=== PATIENT | female | born 1950 | race Caucasian/White ===

== ENCOUNTER 2020-11-18 08:59 | Outpatient (CLI) | payer MEDICARE, BC, SELFPAY ==
--- NOTE | ~2020-11-18 | MM_ITS ---
EXAMINATION: MM screening cari BI w edmund HISTORY: Screening mammogram, history of right breast cancer TECHNIQUE: Craniocaudal and mediolateral oblique 3-D tomosynthesis images were obtained and synthetic 2-D images were generated. CAD analysis was submitted and interpreted. COMPARISON: 10/22/2019, 10/12/2018, 09/14/2017 BREAST PARENCHYMAL COMPOSITION: There are scattered areas of fibroglandular density. FINDINGS: Stable lumpectomy changes are noted in the right breast. There is no evidence of suspicious mass, calcification, or architectural distortion to suggest malignancy in either breast. There has b een no suspicious interval change. IMPRESSION: 1. No mammographic evidence of malignancy. 2. Recommend routine screening mammography in one year. BI-RADS Category 2: Benign finding(s). Reviewed, dictated and finalized at location A. IVING ASSOCIATE
== END 2020-11-18 09:00 | disposition home or self-care (01) ==
LOC: ANHIMG 09:04
PROVIDERS: PCP Nurse Practitioner Adult Health; Visit Provider Nurse Practitioner Adult Health
DX: Z12.31 Encounter for screening mammogram for malignant neoplasm of breast (principal)
CPT/HCPCS: 77063; 77067

== ENCOUNTER 2021-12-30 07:48 | Outpatient (CLI) | payer MEDICARE, BC, SELFPAY ==
--- NOTE | ~2021-12-30 | MM_ITS ---
EXAMINATION: MM screening cari BI w edmund HISTORY: Screening mammogram, history of right breast cancer TECHNIQUE: Craniocaudal and mediolateral oblique 3-D tomosynthesis images were obtained and synthetic 2-D images were generated. CAD analysis was submitted and interpreted. COMPARISON: 11/18/2020, 10/22/2019, 10/12/2018 BREAST PARENCHYMAL COMPOSITION: There are scattered areas of fibroglandular density. FINDINGS: Again noted are stable lumpectomy changes in the right breast. There is no suspicious mass, calcification, or architectural distortion to suggest malignancy in either breast. There has been no suspicious interval change. IMPRESSION: 1. No mammographic evidence of malignancy. 2. Recommend routine screening mammography in one year. BI-RADS Category 2: Benign finding(s). Reviewed, dictated and finalized at location A.
--- NOTE | ~2021-12-30 | DEXA_ITS ---
Bone Density Report Name: ASHWIN STOLL Age: 71 Sex: Female Ethnicity: White Date of : 1950 Indication: osteopenia; height loss; prior fracture; cancer; hysterectomy; postmenopausal Referring Provider: ANAYELI, CAIN Study: Bone densitometry was performed. Exam Date: December 30, 2021 Accession number: [id number] Bone Density: Region BMD T-score Z-score Classification AP Spine (L1-L4) 0.866 -1.6 0.5 Osteopenia Femoral Neck (Left) 0.659 -1.7 0.1 Osteopenia Total Hip (Left) 0.769 -1.4 0.1 Osteopenia Total Hip Bilateral Avg 0.764 -1.5 0.1 Osteopenia Femoral Neck (Right) 0.654 -1.8 0.0 Osteopenia Total Hip (Right) 0.758 -1.5 0.0 Osteopenia World Health Organization criteria for BMD impression classify patients as: Normal (T-score at or above -1.0), Osteopenia (T-score between -1.0 and -2.5), or Osteoporosis (T-score at or below -2.5). 10-year Fracture Risk(1): Major Osteoporotic Fracture 16% Hip Fracture 2.5% Reported Risk Factors: [place] (), Neck BMD=0.654, BMI=31.1, previous fracture (1) FRAX(R) Version 3.08. Fracture probability calculated for an untreated patient. Fracture probability may be lower if the patient has received treatment. Previous Exams: Region Exam Age BMD T-score BMD Change BMD Change Date g/cm2 vs Baseline vs Previous AP Spine(L1-L4) 12/30/2021 71 0.866 -1.6 -0.061(-6.6%)# -0.006(-0.7%) 09/09/2016 65 0.872 -1.6 -0.055(-6.0%)# 0.017(2.0%)# 05/07/2014 63 0.855 -1.7 -0.072(-7.8%)# -0.038(-4.3%)# 02/19/2009 58 0.893 -1.4 -0.034(-3.7%)* -0.034(-3.7%)* 11/15/2005 55 0.927 -1.1 Total Hip(Left) 12/30/2021 71 0.769 -1.4 0.004(0.6%)# 0.040(5.5%)* 09/09/2016 65 0.729 -1.7 -0.036(-4.7%)# -0.007(-0.9%)# 05/07/2014 63 0.736 -1.7 -0.029(-3.8%)# -0.064(-8.0%)# 02/19/2009 58 0.800 -1.2 0.035(4.6%)* 0.035(4.6%)* 11/15/2005 55 0.765 -1.5 Total Hip(Right) 12/30/2021 71 0.758 -1.5 -0.021(-2.7%)# 0.004(0.5%) 09/09/2016 65 0.754 -1.5 -0.025(-3.2%)# -0.006(-0.7%)# 05/07/2014 63 0.759 -1.5 -0.019(-2.5%)# 0.024(3.3%)# 02/19/2009 58 0.735 -1.7 -0.044(-5.6%)* -0.044(-5.6%)* 11/15/2005 55 0.779 -1.3 *Denotes significance at 95% confidence level, LSC for AP Spine = 0.022 g/cm2, LSC for Total Hip = 0.027 g/cm2 Clinical Information Provided by Patient: Has had a low trauma fracture Has used the following medications: Vitamin D Has the following medical conditions: Cancer, Hysterectomy
== END 2021-12-30 07:49 | disposition home or self-care (01) ==
LOC: ANHIMG 07:49
PROVIDERS: PCP Nurse Practitioner Adult Health; Visit Provider Nurse Practitioner Adult Health
DX: Z12.31 Encounter for screening mammogram for malignant neoplasm of breast (principal); Z78.0 Asymptomatic menopausal state; M85.88 Other specified disorders of bone density and structure, other site; M85.852 Other specified disorders of bone density and structure, left thigh; M85.851 Other specified disorders of bone density and structure, right thigh
CPT/HCPCS: 77063; 77067; 77080

== ENCOUNTER 2022-08-31 08:00 | Outpatient (CLI) | payer MEDICARE, BC, SELFPAY ==
--- NOTE | 2022-08-31 | EST_ITS ---
Patient Info Name: Beatris Garcia Age: 71 years : 1950 Gender: Female Ht: 63 in Wt: 165 lbs BSA: 1.85 m2 Exam Date: 08/31/2022 9:16 AM Exam Location: [facility] Stress Patient Status: Outpatient Admit Date: 08/31/2022 Staff Ordering Physician: Celestino, Anastasiya JEWELL Attending Provider: Celestino, Anastasiya JEWELL Exercise Technologist: Catracho Tai RDCS, RT Exercise Physician: Alejandro Blanchard DO Exam Type: CA stress martita w NM Study Info A regadenoson stress test was performed. Summary 1. 1. Negative lexiscan stress test for ischemic ST changes by ECG criteria. 2. 2. Baseline hypertension. 3. 3. Nuclear scan to follow and will be reported separately. Please correlate with it. 4. 4. Patient informed of the above results. Protocol: Lexiscan Stress ECG Details Stage: REST Duration (min): 3 min : 13 sec HR (bpm): 57 SBP (mmHg): 181 DBP (mmHg): 80 Stage: REST Duration (min): 7 min : 51 sec HR (bpm): 61 SBP (mmHg): 181 DBP (mmHg): 80 Stage: STAGE 1 Duration (min): 1 min : 0 sec HR (bpm): 94 SBP (mmHg): 181 DBP (mmHg): 80 Stage: RECOVERY Duration (min): 1 min : 0 sec HR (bpm): 94 SBP (mmHg): 203 DBP (mmHg): 76 Stage: RECOVERY Duration (min): 2 min : 0 sec HR (bpm): 87 SBP (mmHg): 203 DBP (mmHg): 76 Stage: RECOVERY Duration (min): 3 min : 0 sec HR (bpm): 83 SBP (mmHg): 158 DBP (mmHg): 70 Stage: RECOVERY Duration (min): 3 min : 7 sec HR (bpm): 83 SBP (mmHg): 158 DBP (mmHg): 70 Rest HR: 61 bpm Peak HR: 94 bpm Rest Sys BP: 181 mmHg Peak Sys BP: 203 mmHg Max Pred HR: 150 bpm % Max Pred HR: 63 % Target HR: 128 bpm Max RPP: 19,082 bpm*mmHg Termination Reason: Completed protocol Cardiac Symptoms: Shortness of breath Total Time: 1 min : 0 sec Rest Rossi BP: 80 mmHg Peak Rossi BP: 76 mmHg Total Dose: 0.4 mg Resting ECG Sinus rhythm. Stress ECG No ST changes. Arrhythmias None. Report Signatures
--- NOTE | ~2022-08-31 | NM_ITS ---
EXAMINATION: NM martita stress w perfusion DATE: 08/31/2022 11:25 INDICATION: Other forms of dyspnea TECHNIQUE: Rest images were obtained following intravenous administration of 9.6 mCi Tc99m tetrofosmi n (Myoview). The patient was infused intravenously with Lexiscan (Regadenoson). Then, 29.4 mCi Tc99m tetrofosmin (Myoview) was administered intravenously, and stress images were obtained in supine posit ion. Repeat post stress images were obtained in the prone position.. Data was reconstructed into shor t axis and horizontal and vertical long axis SPECT images. Gated SPECT images were also obtained. COMPARISON: None. FINDINGS: Likely attenuation artifact along portions of the anterior and posterior mora on the supin e imaging which normalizes with prone imaging. No perfusion defects on prone imaging to suggest ische iglesia or infarction. There is normal left ventricular chamber size, wall motion and ejection fraction. Left ventricular ejection fraction measures >70%. IMPRESSION: 1. Normal myocardial perfusion at rest and during stress. 2. Left ventricular ejection fraction measuring >70%. Reviewed, dictated and finalized at location B. R BUILDER WINDER
== END 2022-08-31 08:01 | disposition home or self-care (01) ==
PROVIDERS: PCP Nurse Practitioner Adult Health; Visit Provider Nurse Practitioner Adult Health
DX: R06.09 Other forms of dyspnea (principal)
CPT/HCPCS: 78452; 93017; A9502; J2785

== ENCOUNTER 2023-03-01 14:13 | Outpatient (CLI) | payer MEDICARE, BC, SELFPAY ==
--- NOTE | ~2023-03-01 | MM_ITS ---
EXAMINATION: MM screening cari BI w edmund HISTORY: Screening mammogram, history of right breast cancer TECHNIQUE: Craniocaudal and mediolateral oblique 3-D tomosynthesis images were obtained and synthetic 2-D images were generated. CAD analysis was submitted and interpreted. COMPARISON: 12/30/2021, 11/18/2020, 10/22/2019 BREAST PARENCHYMAL COMPOSITION: There are scattered areas of fibroglandular density. FINDINGS: Stable lumpectomy changes are again noted in the right breast. No suspicious mass, calcific ation, or architectural distortion are identified in either breast to suggest malignancy. There has b een no suspicious interval change. IMPRESSION: 1. No mammographic evidence of malignancy. 2. Recommend routine screening mammography in one year. BI-RADS Category 2: Benign finding(s). Reviewed, dictated and finalized at location A.
== END 2023-03-01 14:14 | disposition home or self-care (01) ==
LOC: ANHIMG 14:17
PROVIDERS: PCP Nurse Practitioner Family; Visit Provider Nurse Practitioner Adult Health
DX: Z12.31 Encounter for screening mammogram for malignant neoplasm of breast (principal)
CPT/HCPCS: 77063; 77067

== ENCOUNTER 2024-01-10 08:20 | Outpatient (CLI) | payer MEDICARE, BC, SELFPAY ==
[2024-01-10 09:31] LABS: Basophils Percent Auto 0.7 % (0.2-1.2); Eosinophils Absolute Auto 0.2 K/mm3 (0-0.3); Eosinophils Percent Auto 3.8 % (0-4.4); Hematocrit 32.2 % (37.0-47.0); Hemoglobin 10.4 g/dL (12.0-15.0); Immature Granulocyte Absolute 0.05 K/mm3 (0.00-0.031); Immature Granulocyte Percent A 0.9 % (0-0.5); Lymphocytes Absolute Auto 1.59 K/mm3 (0.9-3.2); Lymphocytes Percent Auto 27.7 % (18.3-44.2); Mean Corpuscular HGB Conc 32.3 g/dl (32-36); Mean Corpuscular Hemoglobin 32.3 pg (26-34); Mean Platelet Volume 10.3 fl (7.4-10.4); Monocytes Absolute Auto 0.5 K/mm3 (0.1-0.6); Monocytes Percent Auto 8.4 % (2.6-8.5); Neutrophils Absolute Auto 3.4 K/mm3 (1.3-6.7); Neutrophils Percent Auto 58.5 % (45.5-73.1); Nucleated Red Blood Cells Perc 0.3 % (0.0-0.2); Platelet Count Result 297 k/mm3 (150-375); Red Blood Count 3.22 M/mm3 (4.2-5.4); Red Cell Distribution Width 15.3 % (11.5-14.5); White Blood Count 5.7 K/mm3 (4.5-10.0)
[2024-01-10 09:59] LABS: Alanine Aminotransferase 15 U/L (6-35); Albumin Level 4.3 g/dL (3.5-5.1); Alkaline Phosphatase 65 U/L (38-126); Anion Gap 5 mmol/L (4-12); Aspartate Amino Transferase 21 U/L (14-36); Bilirubin,Total 0.5 mg/dL (0.2-1.3); Blood Urea Nitrogen 16 mg/dL (7-17); Carbon Dioxide 27 mmol/L (22-30); Chloride 106 mmol/L (98-107); Cholesterol 165 mg/dL (0-200); Estimated Glomerular Filt Rate > 60; Glucose 124 mg/dL (65-110); HDL Direct 46 mg/dL; Potassium 4.6 mmol/L (3.4-5.0); Sodium 138 mmol/L (137-145); Triglycerides 122 mg/dL (<150)
[2024-01-10 10:10] LABS: LDL Cholesterol Direct 94 mg/dL
[2024-01-10 11:00] LABS: Folic Acid > 20.0 ng/mL (2.76->20)
== END 2024-01-10 08:21 | disposition home or self-care (01) ==
LOC: ANHLAB 08:23
PROVIDERS: PCP Nurse Practitioner Adult Health; Visit Provider Nurse Practitioner Adult Health
DX: E78.5 Hyperlipidemia, unspecified (principal); D64.9 Anemia, unspecified
CPT/HCPCS: 36415; 80053; 80061; 82607; 82746; 84443; 85025

== ENCOUNTER 2024-04-04 09:50 | Outpatient (CLI) | payer MEDICARE, BC, SELFPAY ==
--- NOTE | ~2024-04-04 | MM_ITS ---
CORRECTED REPORT corrected examination description [facility] 04/05/24 This report was recreated on 04/05/24. Original report was EXAMINATION: MM screening mammo BI w edmund HISTORY: Screening TECHNIQUE: Craniocaudal and mediolateral oblique 3-D tomosynthesis images were obtained and synthetic 2-D images were generated. CAD analysis was submitted and interpreted. COMPARISON: Comparison to multiple prior studies sequentially, with oldest reviewed study dated 09/14/2017. BREAST PARENCHYMAL COMPOSITION: Not dense: There are scattered areas of fibroglandular density. FINDINGS: There is no evidence of suspicious mass, calcification, or architectural distortion to suggest malignancy in either breast. There has been no suspicious interval change. IMPRESSION: 1. No mammographic evidence of malignancy. 2. Recommend routine screening mammography in one year. BI-RADS Category 1: Negative Reviewed, dictated and finalized at location B. MTDD
== END 2024-04-04 09:51 | disposition home or self-care (01) ==
LOC: ANHIMG 09:53
PROVIDERS: PCP Nurse Practitioner Adult Health; Visit Provider Nurse Practitioner Adult Health
DX: Z12.31 Encounter for screening mammogram for malignant neoplasm of breast (principal)
CPT/HCPCS: 77063; 77067

== ENCOUNTER 2024-06-18 08:03 | Outpatient (CLI) | payer MEDICARE, BC, SELFPAY ==
[2024-06-18 20:06] LABS: Basophils Percent Auto 0.5 % (0.2-1.2); Eosinophils Absolute Auto 0.1 K/mm3 (0-0.3); Eosinophils Percent Auto 1.8 % (0-4.4); Hematocrit 33.4 % (37.0-47.0); Hemoglobin 10.5 g/dL (12.0-15.0); Immature Granulocyte Absolute 0.02 K/mm3 (0.00-0.031); Immature Granulocyte Percent A 0.3 % (0-0.5); Lymphocytes Absolute Auto 1.41 K/mm3 (0.9-3.2); Lymphocytes Percent Auto 22.6 % (18.3-44.2); Mean Corpuscular HGB Conc 31.4 g/dl (32-36); Mean Corpuscular Hemoglobin 32.5 pg (26-34); Mean Corpuscular Volume 103.4 fl (80-100); Mean Platelet Volume 10.1 fl (7.4-10.4); Monocytes Absolute Auto 0.6 K/mm3 (0.1-0.6); Monocytes Percent Auto 8.8 % (2.6-8.5); Neutrophils Absolute Auto 4.1 K/mm3 (1.3-6.7); Platelet Count Result 311 k/mm3 (150-375); Red Blood Count 3.23 M/mm3 (4.2-5.4); White Blood Count 6.2 K/mm3 (4.5-10.0)
[2024-06-18 20:14] LABS: Alanine Aminotransferase 16 U/L (6-35); Albumin Level 4.3 g/dL (3.5-5.1); Alkaline Phosphatase 68 U/L (38-126); Anion Gap 10 mmol/L (4-12); Aspartate Amino Transferase 84 U/L (14-36); Bilirubin,Total 0.5 mg/dL (0.2-1.3); Blood Urea Nitrogen 13 mg/dL (7-17); Calcium 9.8 mg/dL (8.4-10.2); Carbon Dioxide 28 mmol/L (22-30); Chloride 100 mmol/L (98-107); Cholesterol 161 mg/dL (0-200); Estimated Glomerular Filt Rate > 60; Glucose 114 mg/dL (65-110); HDL Direct 41 mg/dL; Potassium 4.8 mmol/L (3.4-5.0); Sodium 138 mmol/L (137-145); Triglycerides 172 mg/dL (<150)
[2024-06-18 20:25] LABS: LDL Cholesterol Direct 78 mg/dL
[2024-06-18 20:41] LABS: Add Urine Microscopic? YES; Appearance Urine Clear (Clear); Bacteria Urine None Seen /hpf; Bilirubin Urine Negative (Negative); Blood Urine Negative (Negative); Color Urine Yellow (Yellow); Glucose Urine UA Negative (Negative); Ketones Urine Negative (Negative); Leukocyte Esterase Ur Trace LEU/UL (Negative); Nitrate Urine Negative (Negative); Non Pathogenic Casts 0-2; Protein Urine Negative (Negative); RBC Urine 0-2 /hpf (0-2); Specific Grav Ur 1.015 (1.001-1.035); Squamous Epithelial Cell Urine None Seen /hpf (Few); Urobilinogen Urine 0.2 mg/dL (<2.0); WBC Urine 0-5 /hpf (0-3); pH Urine 5.5 (5.0-9.0)
== END 2024-06-18 08:04 | disposition home or self-care (01) ==
PROVIDERS: PCP Nurse Practitioner Adult Health; Visit Provider Nurse Practitioner Adult Health
DX: I10 Essential (primary) hypertension (principal); R42 Dizziness and giddiness
CPT/HCPCS: 36415; 80053; 80061; 81001; 85025

== ENCOUNTER 2024-06-19 12:40 | Outpatient (CLI) | payer MEDICARE, BC, SELFPAY | END 2024-06-19 12:41 | disposition home or self-care (01) | LOC: ANHLAB 12:44 | PROVIDERS: PCP Nurse Practitioner Adult Health; Visit Provider Nurse Practitioner Adult Health | DX: R73.9 Hyperglycemia, unspecified (principal) | CPT/HCPCS: 36415; 83036 ==

== ENCOUNTER 2025-01-21 07:53 | Outpatient (CLI) | payer MEDICARE, BC, SELFPAY ==
--- OUTSIDE RECORDS SUMMARY | 2025-01-21 08:01 | XMS_ITS | Clinical Summary ---
Author Organization [facility] Address [address] [place] [address] Care Team Providers Care Manufacturer'S Service Representative Name Role Phone Anastasiya Tirado NP Primary Care Provider Allergies No known active allergies Medications No known medications Social History Tobacco Use Types Packs/Day Years Used Date Smoking Tobacco: Never Smokeless Tobacco: Never Tobacco Cessation:Counseling Given: Not Answered Comments Unknown Sex and Gender Information Value Date Recorded Sex Assigned at Not on file Legal Sex Female 7:49 PM CDT Gender Identity Not on file Sexual Orientation Not on file Last Filed Vital Signs Vital Sign Reading Time Taken Comments Blood Pressure 177/62 11/26/2022 3:15 PM PROCESS TREATER Pulse 76 11/26/2022 3:15 PM PROCESS TREATER Temperature 36.7 C (98 F) 11/26/2022 3:15 PM PROCESS TREATER Respiratory Rate 20 11/26/2022 3:15 PM PROCESS TREATER Oxygen Saturation 97% 11/26/2022 3:15 PM PROCESS TREATER Inhaled Oxygen Concentration - - Weight 63.5 kg (140 lb) 11/26/2022 1:11 PM PROCESS TREATER Height 162.6 cm (5' 4 ) 11/26/2022 1:11 PM PROCESS TREATER Body Mass Index 24.03 11/26/2022 1:11 PM PROCESS TREATER Plan of Treatment Health Maintenance Due Date Last Done Comments Colorectal Cancer Screening Colonoscopy (10 Years) 1950 Hepatitis C 1969 Mammogram Screening 1991 Annual Medicare Wellness Visit 2016 Dexa Scan (General) 2016 DTaP, Tdap and Td Vaccines (2 - Tdap) 03/30/2022 03/30/2012 COVID-19 Vaccine ( season) 2024 08/13/2022, 12/31/2020, 12/29/2020, Additional history exists RSV Immunization or 60+ Years (1 - 1-dose 75+ series) 2026 Pneumococcal Vaccine: 65+ Years Completed 02/18/2019, 02/21/2017, 08/19/2015 Zoster Vaccines Completed 06/25/2019, 05/2018, 03/30/2012 Meningococcal B Vaccine Aged Out No l onger eligible based on patient's age to complete this topic Meningococcal Vaccine Aged Out No holly nicho eligible based on patient's age to complete this topic RSV Immunizations Under 20 Months Aged Out No longer eligible based on patient's age to complete this topic Insurance MEDICARE [facility] Care Teams Manufacturer'S Service Representative Relationship Specialty Start Date End Date Anastasiya Tirado NP [address] [place] [id number] PCP - General NURSE PRACTITIONER 11/26/22
--- OUTSIDE RECORDS SUMMARY | 2025-01-21 08:01 | XMS_ITS | Clinical Summary ---
Author Organization [facility] Address [address] [place] [address] Care Team Providers Care Container Washer Name Role Phone None, Physician Primary Care Provider Unavailabl e Source Comments [facility],non-owned Affiliates and Associated Physician Practices is amultiple site organization consisting of ambulatory clinics and hospital sitesin [place], [place], [place] and [place]. This disclosure is being madepursuant to the Care Everywhere program and may not contain all information available regarding this patient. Last updated 18.[facility] [employer] Allergies Active Allergy Reactions Criticality Noted Date Comments Amoxicillin Other 09/14/2023 Medications * Be aware that medications may not be up to date on this document. Alwaysverify current medications with the patient. Medication Sig Dispensed Refills Start Date End Date Status esomeprazole (NexIUM) 40 MG capsule 07/19/2023 Active simvastatin (Zocor) 20 MG tablet 07/03/2023 Active montelukast (Singulair) 10 MG tablet Take 1 (one) tablet by mouth once daily 08/27/2023 Active vitamin D, ergocalciferol, (Drisdol) 1.25 MG (52022 UT) capsule Take 1 (one) capsule by mouth every 30 days Active metoprolol tartrate IR (Lopressor) 50 MG tablet 10/10/2023 Active meloxicam (Mobic) 15 MG tablet Take 1 tablet every day by oral route as needed. Active losartan (Cozaar) 25 MG tablet Take 1 (one) tablet by mouth once daily 05/31/2023 Active Active Problems No known active problems Social History Tobacco Use Types Packs/Day Years Used Date Smoking Tobacco: Never Smokeless Tobacco: Never Tobacco Cessation:Counseling Given: Not Answered Alcohol Use Standard Drinks/Week Comments Not Currently 0 (1 standard drink = 0.6 oz pur e alcohol) Sex and Gender Information Value Date Recorded Sex Assigned at Not on file Gender Identity Not on file Sexual Orientation Not on file Plan of Treatment Health Maintenance Due Date Last Done Comments BONE DENSITY TESTING 1950 COLOGUARD (AGES 45-75) - COLON CA SCREENING 1950 COLON MONITORING 1950 COLONOSCOPY - COLON CA SCREENING 1950 CT COLONOGRAPHY - COLON CA SCREENING 1950 Colorectal Cancer Screening 1950 FIT - COLON CA SCREENING 1950 FLEX SIG - COLON CA SCREENING 1950 MAMMOGRAM 1950 MEDICARE AWV 12 MONTHS 1950 HEPATITIS C SCREENING 10/28/1969 DTAP/TDAP/TD VACCINES (1 - Tdap) 1970 PNEUMOCOCCAL VACCINE 50+ (1 of 1 - PCV) 2001 ZOSTER VACCINE (1 of 2) 2001 COVID-19 VACCINE (3 - season) 2024 12/31/2020, 12/02/2020 INFLUENZA VACCINE (#1) 2024 2, 07/15/2020, 06/26/2019, Additional history exists DEPRESSION SCREENING 10/16/2024 Respiratory Syncytial Virus (RSV) Vaccine Pt: or over 60 yrs (1 - 1-dose 75+ series) 2026 HEPATITIS B VACCINE Aged Out No longe r eligible based on patient's age to complete this topic HIB VACCINE Aged Out No longer eligi ble based on patient's age to complete this topic HPV VACCINE Aged Out No longer eligi ble based on patient's age to complete this topic MENINGOCOCCAL (Group B) VACCINE SHARED DECISION-MAKING Aged Out No longer eligible based on patient's age to complete this topic MENINGOCOCCAL GROUPS A/C/Y/W VACCINE Aged Out No longer eligible based on patient's age to complete this topic Care Teams Container Washer Relationship Specialty Start Date End Date None, Physician [address] [place] [address] PCP - General 09/14/23
[2025-01-21 19:06] LABS: Basophils Percent Auto 0.5 % (0.2-1.2); Eosinophils Absolute Auto 0.1 K/mm3 (0-0.3); Eosinophils Percent Auto 1.8 % (0-4.4); Hematocrit 32.4 % (37.0-47.0); Hemoglobin 10.1 g/dL (12.0-15.0); Immature Granulocyte Absolute 0.04 K/mm3 (0.00-0.031); Immature Granulocyte Percent A 0.7 % (0-0.5); Lymphocytes Absolute Auto 1.49 K/mm3 (0.9-3.2); Lymphocytes Percent Auto 24.3 % (18.3-44.2); Mean Corpuscular HGB Conc 31.2 g/dl (32-36); Mean Corpuscular Hemoglobin 32.1 pg (26-34); Mean Corpuscular Volume 102.9 fl (80-100); Mean Platelet Volume 10.3 fl (7.4-10.4); Monocytes Absolute Auto 0.5 K/mm3 (0.1-0.6); Monocytes Percent Auto 7.8 % (2.6-8.5); Neutrophils Percent Auto 64.9 % (45.5-73.1); Platelet Count Result 297 k/mm3 (150-375); Red Blood Count 3.15 M/mm3 (4.2-5.4); Red Cell Distribution Width 16.6 % (11.5-14.5); White Blood Count 6.1 K/mm3 (4.5-10.0)
[2025-01-21 19:40] LABS: Alanine Aminotransferase 18 U/L (6-35); Albumin Level 4.4 g/dL (3.5-5.1); Alkaline Phosphatase 70 U/L (38-126); Anion Gap 7 mmol/L (4-12); Aspartate Amino Transferase 77 U/L (14-36); Bilirubin,Total 0.4 mg/dL (0.2-1.3); Blood Urea Nitrogen 14 mg/dL (7-17); Calcium 9.7 mg/dL (8.4-10.2); Carbon Dioxide 27 mmol/L (22-30); Chloride 104 mmol/L (98-107); Cholesterol 186 mg/dL (0-200); Estimated Glomerular Filt Rate > 60; Glucose 112 mg/dL (65-110); HDL Direct 56 mg/dL; Potassium 4.7 mmol/L (3.4-5.0); Sodium 138 mmol/L (137-145); Triglycerides 89 mg/dL (<150)
[2025-01-21 19:52] LABS: LDL Cholesterol Direct 108 mg/dL
[2025-01-21 20:47] LABS: Hemoglobin A1C 5.7 % (<5.7)
== END 2025-01-21 07:54 | disposition home or self-care (01) ==
LOC: ANHBWCLAB 07:56
PROVIDERS: PCP Nurse Practitioner Adult Health; Visit Provider Nurse Practitioner Adult Health
DX: E78.5 Hyperlipidemia, unspecified (principal); R73.9 Hyperglycemia, unspecified
CPT/HCPCS: 36415; 80053; 80061; 83036; 85025

== ENCOUNTER 2025-01-31 10:39 | Outpatient (CLI) | payer MEDICARE, BC, SELFPAY ==
--- OUTSIDE RECORDS SUMMARY | 2025-01-31 10:42 | XMS_ITS | Clinical Summary ---
Author Organization [facility] Address [address] [place] [address] Care Team Providers Care Development Eng Name Role Phone Anastasiya Tirado NP Primary Care Provider [phone] Allergies No known active allergies Medications No [...] Comments Blood Pressure 177/62 11/26/2022 3:15 PM INSTRUMENT CHECKER Pulse 76 11/26/2022 3:15 PM INSTRUMENT CHECKER Temperature 36.7 C (98 F) 11/26/2022 3:15 PM INSTRUMENT CHECKER Respiratory Rate 20 11/26/2022 3:15 PM INSTRUMENT CHECKER Oxygen Saturation 97% 11/26/2022 3:15 PM INSTRUMENT CHECKER Inhaled Oxygen Concentration - - Weight 63.5 kg (140 lb) 11/26/2022 1:11 PM INSTRUMENT CHECKER Height 162.6 cm (5' 4 ) 11/26/2022 1:11 PM INSTRUMENT CHECKER Body Mass Index 24.03 11/26/2022 1:11 PM INSTRUMENT CHECKER Plan of Treatment Health Maintenance Due Date [...] - 1-dose 75+ series) 2026 Pneumococcal Vaccine: 50+ Years Completed 02/18/2019, 02/21/2017, 08/19/2015 Zoster Vaccines [...] age to complete this topic [facility] Care Teams Development Eng Relationship Specialty Start Date End Date Anastasiya Tirado NP [address] [place] [id number] PCP - General NURSE PRACTITIONER 11/26/22
--- OUTSIDE RECORDS SUMMARY | 2025-01-31 10:43 | XMS_ITS | Data Portability ---
Author Organization [facility], Main Office Address [address] [place] [address] Assessment Encounter Date Assessment Date Assessment LastModified by Organization Details LastModified Time 02/28/2023 02/28/2023 Mammogram scheduled for 03/01/23. Colonoscopy- Hysterectomy. Not available 02/28/2023 08:46:54 Plan of Treatment Reminders Order Date Submit Date Provider Last Modified By Organization Details Last Modified Time Details Appointments None recorded. Lab BMP, serum or plasma 2022 023 [facility] (Lab), [address] [place], [address], 3 14:47:42 glycohemogl obin, total, blood 2022 023 [facility] (Lab), [address] [place], [address], 3 14:59:06 lipid panel, serum 2022 023 [facility] (Lab), [address] [place], [address], 3 14:47:39 vitamin B12 + folate, serum or blood [email or web address] (Lab), [address] [place], [address], 3 08:46:46 Referral gastroenter ologist referral - screening colonoscopy . Pt unsure last. (New patient to our office today) 2022 023 [email or web address] Jagdeep Venegas MD, [address], [place], [address], 18:10:38 Procedures None recorded. Surgeries None recorded. Imaging bone density - last in 2020. 2022 023 [facility], [address], [address], [place], [address], 09:05:00 Medication Orders valacyclovi r 1 gram tablet 2022 023 DANISH [facility], [facility], [place], [address], 3 08:53:27 esomeprazol e magnesium 40 mg capsule,del ayed release 2022 023 [email or web address] [facility], [facility], [place], [address], 3 07:55:22 EpiPen 2-Miquel 0.3 mg/0.3 mL injection, auto-inject or 2022 023 [email or web address] [facility], [place], [address], 3 07:46:56 Patient TargetsNo targets recorded. Patient Instructions Encounter Date Encounter Id Patient Instructions Last Modified By Organization Details Last Modified Time 02/28/2023 [id number] FU in 6 mo for prediabetes, b12 low, htn, gerd, allergies, cold sores, constipation, lipid Not available 02/28/2023 09:01:24 Reason for Referral [employer] Referral for Screening for malignant neoplasm of colon screening colonoscopy. Pt unsure last. (New patient to our office today) Referring Physician: Yael Gillette, Family Medicine, Encounter Date: 02/28/2023 Results Created Date Observation Date Name Description Value Unit Range Abnormal Flag Note LastModifiedBy Organization Detail LastModifiedTime 01/04/20 22 01/03/2022 FOLAT E, SERUM /PLAS MA folate 12.7 NG/mL 2.76- Not Available [facility] (Lab) [address] [place], [address], 01/03/2022 15:24:09 01/04/20 22 01/03/2022 VITAM IN B12 (ELAINA OLMAN ) vb12 >1000 pg/mL 239-93 1 high Not Available [facility] (Lab) [address] [place], [address], 01/03/2022 15:24:07 01/04/20 22 01/03/2022 BASIC METAB OLIC PANEL sodium 137 mmol/ L 137-14 5 Not Available [facility] (Lab) [address] [place], [address], 01/03/2022 14:40:52 01/04/20 22 01/03/2022 BASIC METAB OLIC PANEL potassium 4.5 mmol/ L 3.5-5. 1 Not Available [facility] (Lab) [address] [place], [address], 01/03/2022 14:40:52 01/04/20 22 01/03/2022 BASIC METAB OLIC PANEL chloride 103 mmol/ L 98-107 Not Available [facility] (Lab) [address] [place], [address], 01/03/2022 14:40:52 01/04/20 22 01/03/2022 BASIC METAB OLIC PANEL carbon dioxide 29 mmol/ L 22-30 Not Available [facility] (Lab) [address] [place], [address], 01/03/2022 14:40:52 01/04/20 22 01/03/2022 BASIC METAB OLIC PANEL agap 9.5 mmol/ L 14-22 low Not Available [facility] (Lab) [address] [place], [address], 01/03/2022 14:40:52 01/04/20 22 01/03/2022 BASIC METAB OLIC PANEL glucose 119 mg/dL 70-99 high Not Available [facility] (Lab) [address] [place], [address], 01/03/2022 14:40:52 01/04/20 22 01/03/2022 BASIC METAB OLIC PANEL BUN 16 mg/dL 8-19 Not Available [facility] (Lab) [address] [place], [address], 01/03/2022 14:40:52 01/04/20 22 01/03/2022 BASIC METAB OLIC PANEL creatinine 0.71 mg/dL 0.66-1 .25 Not Available [facility] (Lab) [address] [place], [address], 01/03/2022 14:40:52 01/04/20 22 01/03/2022 BASIC METAB OLIC PANEL GFR >60 Refer ence Range : [place] ge GFR Healt hy Adult : >60 mL/mi n/1.7 3 m2 Chron ic Kidne y Disea se: 15-60 mL/mi n/1.7 3 m2 Kidne y Failu re: <15/m L/min /1.73 m2 www.n iddk. nih.g ov The MDRD study equat ion has not been valid ated in child carlos <18 years of age; pregn ant women ; the elder ly >85 years of age; or in some racia l or ethni c subgr oups, such as Hispa nics. Outsi de the valid ated remi eters , estim ated GFR is less accur ate, requi ring clini quique judgm ent on a case- by-ca se basis . Clini quique inter preta tion for other races and ages must be made by the clini medardo. The MDRD study equat ion has not been valid ated for the evalu ation of serum creat inine relat ed to nutri moe l statu s or medic ation usage . For perso ns <18 years of age, a pedia tric GFR calcu lator is avail able on the [facility] websi te: https ://lang montero.o mirtha/pr marleneess ional s/kdo qi/gf r_cal culat or Not Available [facility] (Lab) [address] [place], [address], 01/03/2022 14:40:52 01/04/20 22 01/03/2022 BASIC METAB OLIC PANEL calcium 10.1 mg/dL 8.4-10 .2 Not Available [facility] (Lab) [address] [place], [address], 01/03/2022 14:40:52 01/04/20 22 01/03/2022 LIPID PANEL cholesterol 198 mg/dL 140-19 9 NIH CAROL NSUS RECOM MENDA TION FOR VIVIENNE STERO L: ADULT CHILD LOW RISK: <200 <170 BORDE RLINE : <200- 239 ----- HIGH RISK: >240 >200 Not Available [facility] (Lab) [address] [place], [address], 01/03/2022 14:40:44 01/04/20 22 01/03/2022 LIPID PANEL triglyceride s 145 mg/dL 0-150 NIH CAROL NSUS REPOR T RECOM MENDA TION FOR TRIGL YCERI SONNY: ADULT CHILD LOW RISK: <150 ----- BODER LINE: 150-1 99 ----- HIGH RISK: >200 ----- Not Available [facility] (Lab) [address] [place], [address], 01/03/2022 14:40:44 01/04/20 22 01/03/2022 LIPID PANEL HDL cholesterol 52 mg/dL 40- Not Available [facility] (Lab) [address] [place], [address], 01/03/2022 14:40:44 01/04/20 22 01/03/2022 LIPID PANEL LDL cholesterol, calculated 117 mg/dL 0-130 NIH CAROL NSUS REPOR T RECOM MENDA TIONS FOR LDL: ADULT CHILD LOW RISK <130 <110 (OPTI MAL LDL) <100 ----- GORDONDE RLINE : 130-1 59 ----- HIGH RISK: >160 >130 A TRIGL YCERI DE RESUL T >400 INVAL IDATE S THE CALCU LATIO N FOR LDL FRACT IONAT ION - THE LDL RESUL T WILL NOT BE REPOR AUDREY. Not Available [facility] (Lab) [address] [place], [address], 01/03/2022 14:40:44 01/04/20 22 01/03/2022 HEPAT IC/LI ALINA PANEL biliurubin,u ncong. (indirect) 0.60 mg/dL 0.00-1 .1 Not Available [facility] (Lab) [address] [place], [address], 01/03/2022 14:40:42 01/04/20 22 01/03/2022 HEPAT IC/LI ALINA PANEL alkaline phosphatase 65 U/L 38-126 Not Available [facility] (Lab) [address] [place], [address], 01/03/2022 14:40:42 01/04/20 22 01/03/2022 HEPAT IC/LI ALINA PANEL alanine aminotransfe rase 16 U/L 0-35 Not Available [facility] (Lab) [address] [place], [address], 01/03/2022 14:40:42 01/04/20 22 01/03/2022 HEPAT IC/LI ALINA PANEL aspartate aminotransfe rase 22 U/L 15-37 Not Available [facility] (Lab) [address] [place], [address], 01/03/2022 14:40:42 01/04/20 22 01/03/2022 HEPAT IC/LI ALINA PANEL bilirubin, total 0.40 mg/dL 0.20-1 .30 Not Available [facility] (Lab) [address] [place], [address], 01/03/2022 14:40:42 01/04/20 22 01/03/2022 HEPAT IC/LI ALINA PANEL bilirubin, conjugated (direct) 0.00 mg/dL 0.00-0 .30 Not Available [facility] (Lab) [address] [place], [address], 01/03/2022 14:40:42 01/04/20 22 01/03/2022 HEPAT IC/LI ALINA PANEL total protein 7.1 g/dL 6.3-8. 2 Not Available [facility] (Lab) [address] [place], [address], 01/03/2022 14:40:42 01/04/20 22 01/03/2022 HEPAT IC/LI ALINA PANEL albumin 4.6 g/dL 3.0-4. 4 high Not Available [facility] (Lab) [address] [place], [address], 01/03/2022 14:40:42 01/04/20 22 01/03/2022 HEPAT IC/LI ALINA PANEL globulin 2.5 g/dL 2.6-4. 2 low Not Available [facility] (Lab) [address] [place], [address], 01/03/2022 14:40:42 01/04/20 22 01/03/2022 HEPAT IC/LI ALINA PANEL A/G ratio 1.8 ratio 1.0-2. 0 Not Available [facility] (Lab) [address] [place], [address], 01/03/2022 14:40:42 01/04/20 22 01/03/2022 VITAM IN D 25-HY DROXY vd25oh 58.9 NG/mL 30-100 Vitam in D Statu s: Defic ient: <20 ng/mL Insuf ficie nt: 20-29 ng/mL Suffi cient : 30-10 0 ng/mL Not Available [facility] (Lab) [address] [place], [address], 01/03/2022 14:40:09 01/04/20 22 01/03/2022 HEMOG LOBIN A1C HA1C 6.1 % 4.0-6. 0 high Diabe joyce Scree dakota Crite lyudmila: <5.7% Consi stent with absen ce of diabe joyce 5.7-6 .4% Consi stent with incre ased risk for diabe joyce (pred iabet es) >OR=6 .5% Consi stent with diabe joyce REFER ENCE: Diabe joyce Care 39(Barros ppl.1 ):s13 -s22 Not Available [facility] (Lab) [address] [place], [address], 01/03/2022 13:16:37 08/09/20 22 08/10/2022 HEMOG LOBIN A1C HA1C 6.0 % 4.0-6. 0 Diabe joyce Scree dakota Crite lyudmila: <5.7% Consi stent with absen ce of diabe joyce 5.7-6 .4% Consi stent with incre ased risk for diabe joyce (pred iabet es) >OR=6 .5% Consi stent with diabe joyce REFER ENCE: Diabe joyce Care 39(Barros ppl.1 ):s13 -s22 Not Available [facility] (Lab) [address] [place], [address], 08/10/2022 15:12:23 08/09/2008/09/2022 FOLAT E, SERUM /PLAS MA folate 8.83 NG/mL 2.76-2 0.0 Not Available [facility] (Lab) [address] [place], [address], 08/09/2022 15:07:59 08/09/20 22 08/09/2022 VITAM IN B12 (ELAINA OLMAN ) vb12 >1000 pg/mL 239-93 1 high Not Available [facility] (Lab) [address] [place], [address], 08/09/2022 15:07:55 08/09/20 22 08/09/2022 VITAM IN D 25-HY DROXY vd25oh 51.1 NG/mL 30-100 Vitam in D Statu s: Defic ient: <20 ng/mL Insuf ficie nt: 20-29 ng/mL Suffi cient : 30-10 0 ng/mL Not Available [facility] (Lab) [address] [place], [address], 08/09/2022 14:21:59 08/09/20 22 08/09/2022 BASIC METAB OLIC PANEL sodium 137 mmol/ L 137-14 5 Not Available [facility] (Lab) [address] [place], [address], 08/09/2022 14:10:02 08/09/20 22 08/09/2022 BASIC METAB OLIC PANEL potassium 5.3 mmol/ L 3.5-5. 1 high Not Available [facility] (Lab) [address] [place], [address], 08/09/2022 14:10:02 08/09/20 22 08/09/2022 BASIC METAB OLIC PANEL chloride 106 mmol/ L 98-107 Not Available [facility] (Lab) [address] [place], [address], 08/09/2022 14:10:02 08/09/20 22 08/09/2022 BASIC METAB OLIC PANEL carbon dioxide 27 mmol/ L 22-30 Not Available [facility] (Lab) [address] [place], [address], 08/09/2022 14:10:02 08/09/20 22 08/09/2022 BASIC METAB OLIC PANEL anion gap 9.3 mmol/ L 14-22 low Not Available [facility] (Lab) [address] [place], [address], 08/09/2022 14:10:02 08/09/20 22 08/09/2022 BASIC METAB OLIC PANEL glucose 118 mg/dL 70-99 high Not Available [facility] (Lab) [address] [place], [address], 08/09/2022 14:10:02 08/09/20 22 08/09/2022 BASIC METAB OLIC PANEL BUN 15 mg/dL 8-19 Not Available [facility] (Lab) [address] [place], [address], 08/09/2022 14:10:02 08/09/20 22 08/09/2022 BASIC METAB OLIC PANEL creatinine 0.79 mg/dL 0.66-1 .25 Not Available [facility] (Lab) [address] [place], [address], 08/09/2022 14:10:02 08/09/20 22 08/09/2022 BASIC METAB OLIC PANEL GFR >60 Refer ence Range : [place] ge GFR Healt hy Adult : >60 mL/mi n/1.7 3 m2 Chron ic Kidne y Disea se: 15-60 mL/mi n/1.7 3 m2 Kidne y Failu re: <15/m L/min /1.73 m2 www.n iddk. nih.g ov The MDRD study equat ion has not been valid ated in child carlos <18 years of age; pregn ant women ; the elder ly >85 years of age; or in some racia l or ethni c subgr oups, such as Hispa nics. Outsi de the valid ated remi eters , estim ated GFR is less accur ate, requi ring clini quique judgm ent on a case- by-ca se basis . Clini quique inter preta tion for other races and ages must be made by the clini medardo. The MDRD study equat ion has not been valid ated for the evalu ation of serum creat inine relat ed to nutri moe l statu s or medic ation usage . For perso ns <18 years of age, a pedia tric GFR calcu lator is avail able on the [facility] websi te: https ://lang perdomo.renetta montero.o rg/pr ofess ional s/kdo qi/gf r_cal culat or Not Available [facility] (Lab) [address] [place], [address], 08/09/2022 14:10:02 08/09/20 22 08/09/2022 BASIC METAB OLIC PANEL calcium 9.9 mg/dL 8.4-10 .2 Not Available [facility] (Lab) [address] [place], [address], 08/09/2022 14:10:02 08/09/20 22 08/09/2022 LIPID PANEL cholesterol 196 mg/dL 140-19 9 NIH CAROL NSUS RECOM MENDA TION FOR VIVIENNE STERO L: ADULT CHILD LOW RISK: <200 <170 BORDE RLINE : <200- 239 ----- HIGH RISK: >240 >200 Not Available [facility] (Lab) [address] [place], [address], 08/09/2022 14:09:52 08/09/20 22 08/09/2022 LIPID PANEL triglyceride s 183 mg/dL 0-150 high NIH CAROL NSUS REPOR T RECOM MENDA TION FOR TRIGL YCERI SONNY: ADULT CHILD LOW RISK: <150 ----- BODER LINE: 150-1 99 ----- HIGH RISK: >200 ----- Not Available [facility] (Lab) [address] [place], [address], 08/09/2022 14:09:52 08/09/20 22 08/09/2022 LIPID PANEL HDL cholesterol 45 mg/dL 40- Not Available [facility] (Lab) [address] [place], [address], 08/09/2022 14:09:52 08/09/2008/09/2022 LIPID PANEL LDL cholesterol, calculated 114 mg/dL 0-130 NIH CAROL NSUS REPOR T RECOM MENDA TIONS FOR LDL: ADULT CHILD LOW RISK <130 <110 (OPTI MAL LDL) <100 ----- BORDE RLINE : 130-1 59 ----- HIGH RISK: >160 >130 A TRIGL YCERI DE RESUL T >400 INVAL IDATE S THE CALCU LATIO N FOR LDL FRACT IONAT ION - THE LDL RESUL T WILL NOT BE REPOR AUDREY. Not Available [facility] (Lab) [address] [place], [address], 08/09/2022 14:09:52 08/09/2008/09/2022 HEPAT IC/LI ALINA PANEL biliurubin,u ncong. (indirect) 0.40 mg/dL 0.00-1 .1 Not Available [facility] (Lab) [address] [place], [address], 08/09/2022 14:09:40 08/09/20 22 08/09/2022 HEPAT IC/LI ALINA PANEL alkaline phosphatase 78 U/L 38-126 Not Available [facility] (Lab) [address] [place], [address], 08/09/2022 14:09:40 08/09/20 22 08/09/2022 HEPAT IC/LI ALINA PANEL alanine aminotransfe rase 15 U/L 0-35 Not Available [facility] (Lab) [address] [place], [address], 08/09/2022 14:09:40 08/09/20 22 08/09/2022 HEPAT IC/LI ALINA PANEL aspartate aminotransfe rase 22 U/L 15-37 Not Available [facility] (Lab) [address] [place], [address], 08/09/2022 14:09:40 08/09/20 22 08/09/2022 HEPAT IC/LI ALINA PANEL bilirubin, total 0.40 mg/dL 0.20-1 .30 Not Available [facility] (Lab) [address] [place], [address], 08/09/2022 14:09:40 08/09/20 22 08/09/2022 HEPAT IC/LI ALINA PANEL bilirubin, conjugated (direct) 0.00 mg/dL 0.00-0 .30 Not Available [facility] (Lab) [address] [place], [address], 08/09/2022 14:09:40 08/09/20 22 08/09/2022 HEPAT IC/LI ALINA PANEL total protein 6.7 g/dL 6.3-8. 2 Not Available [facility] (Lab) [address] [place], [address], 08/09/2022 14:09:40 08/09/20 22 08/09/2022 HEPAT IC/LI ALINA PANEL albumin 4.4 g/dL 3.0-4. 4 Not Available [facility] (Lab) [address] [place], [address], 08/09/2022 14:09:40 08/09/20 22 08/09/2022 HEPAT IC/LI ALINA PANEL globulin 2.3 g/dL 2.6-4. 2 low Not Available [facility] (Lab) [address] [place], [address], 08/09/2022 14:09:40 08/09/20 22 08/09/2022 HEPAT IC/LI ALINA PANEL A/G ratio 1.9 ratio 1.0-2. 0 Not Available [facility] (Lab) [address] [place], [address], 08/09/2022 14:09:40 02/29/20 23 02/28/2023 LIPID PANEL cholesterol 192 mg/dL 140-19 9 NIH CAROL NSUS RECOM MENDA TION FOR VIVIENNE STERO L: ADULT CHILD LOW RISK: <200 <170 BORDE RLINE : <200- 239 ----- HIGH RISK: >240 >200 Not Available [facility] (Lab) [address] [place], [address], 02/28/2023 14:47:39 02/29/20 23 02/28/2023 LIPID PANEL triglyceride s 175 mg/dL 0-150 high NIH CAROL NSUS REPOR T RECOM MENDA TION FOR TRIGL YCERI SONNY: ADULT CHILD LOW RISK: <150 ----- BODER LINE: 150-1 99 ----- HIGH RISK: >200 ----- Not Available [facility] (Lab) [address] [place], [address], 02/28/2023 14:47:39 02/29/20 23 02/28/2023 LIPID PANEL HDL cholesterol 49 mg/dL 40- Not Available [facility] (Lab) [address] [place], [address], 02/28/2023 14:47:39 02/29/20 23 02/28/2023 LIPID PANEL LDL cholesterol, calculated 108 mg/dL 0-130 NIH CAROL NSUS REPOR T RECOM MENDA TIONS FOR LDL: ADULT CHILD LOW RISK <130 <110 (OPTI MAL LDL) <100 ----- BORDE RLINE : 130-1 59 ----- HIGH RISK: >160 >130 A TRIGL YCERI DE RESUL T >400 INVAL IDATE S THE CALCU LATIO N FOR LDL FRACT IONAT ION - THE LDL RESUL T WILL NOT BE REPOR AUDREY. Not Available [facility] (Lab) [address] [place], [address], 02/28/2023 14:47:39 02/29/2002/28/2023 BASIC METAB OLIC PANEL sodium 137 mmol/ L 137-14 5 Not Available [facility] (Lab) [address] [place], [address], 02/28/2023 14:47:42 02/29/20 23 02/28/2023 BASIC METAB OLIC PANEL potassium 4.9 mmol/ L 3.5-5. 1 Not Available [facility] (Lab) [address] [place], [address], 02/28/2023 14:47:42 02/29/20 23 02/28/2023 BASIC METAB OLIC PANEL chloride 103 mmol/ L 98-107 Not Available [facility] (Lab) [address] [place], [address], 02/28/2023 14:47:42 02/29/20 23 02/28/2023 BASIC METAB OLIC PANEL carbon dioxide 27 mmol/ L 22-30 Not Available [facility] (Lab) [address] [place], [address], 02/28/2023 14:47:42 02/29/20 23 02/28/2023 BASIC METAB OLIC PANEL anion gap 11.9 mmol/ L 14-22 low Not Available [facility] (Lab) [address] [place], [address], 02/28/2023 14:47:42 02/29/20 23 02/28/2023 BASIC METAB OLIC PANEL glucose 125 mg/dL 70-99 high Not Available [facility] (Lab) [address] [place], [address], 02/28/2023 14:47:42 02/29/20 23 02/28/2023 BASIC METAB OLIC PANEL BUN 12 mg/dL 8-19 Not Available [facility] (Lab) [address] [place], [address], 02/28/2023 14:47:42 02/29/20 23 02/28/2023 BASIC METAB OLIC PANEL creatinine 0.77 mg/dL 0.66-1 .25 Not Available [facility] (Lab) [address] [place], [address], 02/28/2023 14:47:42 02/29/2002/28/2023 BASIC METAB OLIC PANEL GFR >60 Refer ence Range : [place] ge GFR Healt hy Adult : >60 mL/mi n/1.7 3 m2 Chron ic Kidne y Disea se: 15-60 mL/mi n/1.7 3 m2 Kidne y Failu re: <15/m L/min /1.73 m2 www.n iddk. nih.g ov The MDRD study equat ion has not been valid ated in child carlos <18 years of age; pregn ant women ; the elder ly >85 years of age; or in some racia l or ethni c subgr oups, such as Hispa nics. Outsi de the valid ated remi eters , estim ated GFR is less accur ate, requi ring clini quique judgm ent on a case- by-ca se basis . Clini quique inter preta tion for other races and ages must be made by the clini medardo. The MDRD study equat ion has not been valid ated for the evalu ation of serum creat inine relat ed to nutri moe l statu s or medic ation usage . For perso ns <18 years of age, a pedia tric GFR calcu lator is avail able on the [facility] websi te: https ://lang montero.robb shannon/alivia allen s/harsho qi/gf r_cal culat or Not Available [facility] (Lab) [address] [place], [address], 02/28/2023 14:47:42 02/29/2002/28/2023 BASIC METAB OLIC PANEL calcium 9.9 mg/dL 8.4-10 .2 Not Available [facility] (Lab) [address] [place], [address], 02/28/2023 14:47:42 02/29/2002/28/2023 HEMOG LOBIN A1C HA1C 5.9 % 4.0-6. 0 Diabe joyce Scree dakota Crite lyudmila: <5.7% Consi stent with absen ce of diabe joyce 5.7-6 .4% Consi stent with incre ased risk for diabe joyce (pred iabet es) >OR=6 .5% Consi stent with diabe joyce REFER ENCE: Diabe joyce Care 2015, 39(Barros ppl.1 ):s13 -s22 Not Available [facility] (Lab) [address] [place], [address], 02/28/2023 14:59:06 02/29/20 23 02/28/2023 VITAM IN B12 (ELAINA OLMAN ) vb12 903 pg/mL 239-93 1 Not Available [facility] (Lab) [address] [place], [address], 02/28/2023 15:49:50 02/29/2002/28/2023 FOLAT E, SERUM /PLAS MA folate 11.7 NG/mL 2.76-2 0.0 Not Available [facility] (Lab) [address] [place], [address], 02/28/2023 15:49:53 12/31/19 22 12/30/2021 MAMMO , scree dakota, bilat eral No observ ation record ed. [id number], [address], 12/14/2022 02:55:12 08/31/20 22 08/31/2022 tom can cardi olite stres s test (PROC ) No observ ation record ed. [id number] [address], [address], 12/14/2022 02:55:12 08/31/20 22 08/31/2022 tom can cardi olite stres s test (PROC ) No observ ation record ed. [id number] [address], [address], 12/14/2022 02:55:12 08/31/20 22 08/31/2022 tom can cardi olite stres s test (PROC ) No observ ation record ed. [id number] [facility] [address], [place], [address], 12/14/2022 02:55:12 03/01/2003/01/2023 MAMMO , scree dakota, digit al, bilat eral No observ ation record ed. [email or web address] [facility] [address], [place], [address], 03/02/2023 09:11:43 03/01/2003/01/2023 MAMMO , scree dakota, bilat eral No observ ation record ed. [email or web address] [facility] [address] [facility] [address], [place], [address], 03/02/2023 12:33:11 Result Notes None recorded. Problems Name Problem SNOMED Code Status Onset Date Resolution Date Notes Provider Name and Address Organization Details Recorded Time Plantar fasciitis of right foot [id number] Active 2020 Not Available [facility] 3 02:44:44 Disorder of knee 939465884 Active Not Available [facility] 3 02:44:44 Hyperchol esterolem ia 49456574 Active Not Available [facility] 3 02:44:44 Constipat ion 46793293 Active Not Available [facility] 3 02:44:44 Tibialis posterior tendiniti s 170429213 Active 2020 Not Available [facility] 3 02:44:44 Plantar fasciitis 281318181 Active Not Available [facility] 3 02:44:44 Gastroeso phageal reflux disease 796329780 Active Not Available [facility] 3 02:44:44 Dyspnea 298888526 Completed Not Available [facility] 3 02:44:44 Osteopeni a 260194217 Active Not Available [facility] 3 02:44:45 Vitamin D deficienc y 49871934 Active Not Available [facility] 3 02:44:45 Hypertens amy disorder 39105179 Active Not Available [facility] 3 02:44:45 Disorder of vitamin B12 326820242 Active 2019 Not Available [facility] 3 02:44:45 Influenza caused by Influenza A virus 166609530 Completed 201602/21/2017 Not Available [facility] 3 02:44:45 Hyperlipi demia 70078603 Active Not Available [facility] 3 02:44:45 Essential hypertens ion 50880646 Active Not Available [facility] 3 02:44:45 Prediabet es 761391979 Active 2021 Not Available [facility] 3 02:44:45 Hyperglyc emia 72594698 Active Not Available [facility] 3 02:44:46 Allergic reaction to wasp sting 845122331 Active 2022 Yael Gillette NP [address], [address], [address] , [employer] 3 08:37:08 Vitamin B12 deficienc y (non anemic) 96570148 Active 2022 Yael Gillette NP [address], [place] [address], [place], [address] , [facility] 3 08:38:16 Herpes labialis 5511209 Active 2022 Yael Gillette NP [address], [place] [address], [place], [address] , [facility] 3 08:43:05 Seasonal allergic rhinitis 367040760 Active 2022 Yael Gillette NP [address], [place] [address], [place], [address] , [facility] 3 08:44:56 Problem Notes None recorded. Procedures Surgical History Date Name Laterality Status Provider Name and Address Organization Details Recorded Time 10/16/18 99 lumpectomy of right breast completed Yael Zavaleta RN [facility] [employer] [facility] 02/28/2023 08:21:25 01/01/19 99 lumpectomy of right breast completed Yael Zavaleta RN [facility] 02/28/2023 08:21:45 10/16/18 88 hysterectomy completed Yael Zavaleta RN [facility] 02/28/2023 08:21:56 Imaging Results Imaging Date Name Status LastModified by Organiz ation Details LastModified Time 12/30/2021 MAMMO, screening, bilateral completed [id number] [address], [address], 12/14/2022 02:55:12 08/31/2022 lexiscan cardiolite stress test (PROC) completed [id number].[id number] [address], [address], 12/14/2022 02:55:12 08/31/2022 lexiscan cardiolite stress test (PROC) completed [id number] [address], [address], 12/14/2022 02:55:12 08/31/2022 lexiscan cardiolite stress test (PROC) completed [id number] [address], [address], 12/14/2022 02:55:12 03/01/2023 MAMMO, screening, digital, bilateral completed [email or web address] [address], [address], 03/02/2023 09:11:43 03/01/2023 MAMMO, screening, bilateral completed [email or web address] [address], [address], 03/02/2023 12:33:11 Procedure Notes None recorded. Medical Equipment None Reported. Allergies Allergen ID Allergen Name Allergen Category Reaction Reaction Severity Criticality Documentation Date Start Date Code Code System Note Provider Name and Address Organization Details Recorded Time 4211 amoxicill in medicatio n Not available Not available Not available 12/14/2022 723 RxNorm bee/w asp sting s dizzy and swoll en Yael Gillette, [employer] [address], [place], [address] , [facility] [employer] 3 08:36:12 Medications Name Sig Start Date Stop Date Status Note LastModified by Organization Details LastModified Time doxycycline hyclate 100 mg capsule Take 1 capsule twice a day by oral route for 10 days. active Not Available Not Available No t Available valacyclovi r 1 gram tablet Take 2 tablets po bid x 1 day at onset of cold sore. 2022 active Not Available Not Available Not Avai lable hydrocodone 5 mg-acetamin ophen 325 mg tablet 01/01 completed Not Available Not Available Not Available meloxicam 15 mg tablet Take 1 tablet every day by oral route as needed. active Not Available Not Available No t Available clindamycin HCl 150 mg capsule 08/21 completed Not Available Not Available Not Available triamcinolo ne acetonide 40 mg/mL suspension for injection inject 1 ml 02/28 completed Not Available Not Available Not Available cephalexin 500 mg capsule TAKE 1 CAPSULE BY MOUTH TWICE DAILY FOR 5 DAYS 08/09 completed Not Available Not Available Not Available simvastatin 20 mg tablet 1 tab po nightly. 2022 active Not Available Not Available Not Avai lable cyanocobala min (vit B-12) 1,000 mcg/mL injection solution Inject 1ml weekly x 4 then monthly active Not Available Not Available No t Available oseltamivir 75 mg capsule TK 1 C PO BID FOR 5 DAYS 02/21 completed Not Available Not Available Not Available esomeprazol e magnesium 40 mg capsule,del ayed release 2022 active Not Available Not Available Not Avai lable losartan 25 mg tablet TAKE 1 TABLET DAILY 2022 active Not Available Not Available Not Avai lable metoprolol tartrate 50 mg tablet TAKE 1 TABLET BY MOUTH TWICE DAILY 2022 active Not Available Not Available Not Avai lable montelukast 10 mg tablet Take 1 tablet every day by oral route for 90 days. 2022 active Not Available Not Available Not Avai lable ergocalcife rol (vitamin D2) 1,250 mcg (50,000 unit) capsule TAKE 1 CAPSULE EVERY WEEK 02/21 completed OTC Not Available Not Available Not Available methylpredn isolone 4 mg tablets in a dose pack FOLLOW PACKAGE DIRECTION S 08/09 completed Not Available Not Available Not Available PreviDent 5000 Plus 1.1 % cream USE TO BRUSH FOR 2 MIN AND SPIT BID 02/28 completed Not Available Not Available Not Available metformin ER 500 mg tablet,exte nded release 24 hr Take 1 tablet every day by oral route in the morning for 90 days. active Not Available Not Available No t Available Asprin Ec Low Dose 81 mg tablet,kurt yed release Take 1 tablet every day by oral route. 2020 active Not Available Not Available Not Avai lable chlorhexidi ne gluconate 0.12 % mouthwash 02/28 completed Not Available Not Available Not Available Vitamin D2 Take 1 daily 2016 active Not Available Not Available Not Avai lable EpiPen 2-Miquel 0.3 mg/0.3 mL injection, auto-inject or 0.3 MG SC/IM X1, MAY REPEAT DOSE X1 AFTER 5-15MIN if allergic reaction persists. 2022 active Not Available Not Available Not Avai lable Fluad 65yr up(PF)45 mcg(15 mcgx3)/0.5 mL intramuscul ar syringe active Not Available Not Available N ot Available Shingrix (PF) 50 mcg/0.5 mL intramuscul ar suspension, kit ADM 0.5ML IM UTD 08/09 completed Not Available Not Available Not Available Fluad 65yr up(PF)45 mcg(15 mcgx3)/0.5 mL intramuscul ar syringe ADM 0.5ML IM UTD active Not Available Not Available No t Available Fluad Quad (6 5yr up)(PF) 60 mcg (15 mcg x 4)/0.5mL IM syringe ADM 0.5ML IM UTD 11/16 completed Not Available Not Available Not Available Vitals Date Recorded Body height Body mass index (BMI) Body weight Body temperature Heart rate Respiratory rate Oxygen saturation Oxygen saturation in Arterial blood by Pulse oximetry Pain severity - 0-10 verbal numeric rating [Score] - Reported Systolic blood pressure Diastolic blood pressure Provider Name and Address Organization Details Last Updated DateTime 3 160.02 cm 28.6 kg/m2 36435.4 2 g 96.6 [degF] 54 /min 16 /min 97 % 97 % 0 152 mm[Hg] 72 mm[Hg] Yael Zavaleta RN [place] [facility] [place] [employer] [facility] 3 08:19:17 Date Recorded Body mass index (BMI) Body height Oxygen saturation Oxygen saturation in Arterial blood by Pulse oximetry Heart rate Body temperature Body weight Systolic blood pressure Diastolic blood pressure Provider Name and Address Organization Details Last Updated DateTime 2 29.6 kg/m2 160.02 cm 99 % 99 % 64 /min 97 [degF] 25216.9 3 g 142 mm[Hg] 76 mm[Hg] Not Available [facility] 3 02:42:36 Date Recorded Body mass index (BMI) Body height Oxygen saturation Oxygen saturation in Arterial blood by Pulse oximetry Heart rate Body temperature Body weight Systolic blood pressure Diastolic blood pressure Provider Name and Address Organization Details Last Updated DateTime 2 29.2 kg/m2 160.02 cm 96 % 96 % 67 /min 97.3 [degF] 37445.7 4 g 136 mm[Hg] 80 mm[Hg] Not Available [facility] 3 02:42:36 Date Recorded Body height Provider Name an d Address Organization Details Last Updated DateTime 10/11/2021 160.02 cm Not Available [facility] 3 02:42:38 Social History Question Answer Notes LastModified by Organizat ion Details LastModified Time Tobacco Smoking Status Never Smoker Not Available [facility] 12/14/2022 02:34:58 Do You Have An Advance Directive? Yes MIGRATION.[id number] 9606 Information not available 12/14/2022 What Is Your Level Of Alcohol Consumption? None MIGRATION.741796 4104 Information not available 12/14/2022 Do You Wear A Helmet When Biking? Yes MIGRATION.008626 2086 Information not available 12/14/2022 Are You Blind Or Do You Have Difficulty Seeing? No MIGRATION.985983 8969 Information not available 12/14/2022 Is Blood Transfusion Acceptable In An Emergency? Yes Information not available 02/28/2023 What Is Your Level Of Caffeine Consumption? Moderate MIGRATION.674203 4181 Information not available 12/14/2022 What Is Your Code Status? Full Code MIGRATION.563214 5122 Information not available 12/14/2022 In The 14 Days Before Symptom Onset, Have You Had Close Contact With A Laboratory-confir med COVID-19 While That Case Was Ill? No MIGRATION.882626 6043 Information not available 12/14/2022 In The 14 Days Before Symptom Onset, Have You Had Close Contact With A Person Who Is Under Investigation For COVID-19 While That Person Was Ill? No MIGRATION.190805 3773 Information not available 12/14/2022 Are You Currently Employed? No Information not available 02/28/2023 Are You Deaf Or Do You Have Serious Difficulty Hearing? No MIGRATION.446769 5243 Information not available 12/14/2022 What Type Of Diet Are You Following? REGULAR MIGRATION.641000 6914 Information not available 12/14/2022 What Is The Highest Grade Or Level Of School You Have Completed Or The Highest Degree You Have Received? [id number] MIGRATION.856779 6640 Information not available 12/14/2022 Have There Been Any Changes To Your Family Or Social Situation? No MIGRATION.044366 7076 Information not available 12/14/2022 What Is The Fluoride Status Of Your Home? Unknown MIGRATION.146149 1135 Information not available 12/14/2022 Are There Any Guns Present In Your Home? No MIGRATION.426967 9608 Information not available 12/14/2022 Do You Use Insect Repellent Routinely? Yes MIGRATION.854669 5241 Information not available 12/14/2022 Where Do You Live? [facility] MIGRATION.882831 3962 Information not available 12/14/2022 Do You Have A Medical Power Of Hemp Fiber Taker Off? Yes MIGRATION.315476 2364 Information not available 12/14/2022 Do You Have Any Pets? No MIGRATION.425985 2755 Information not available 12/14/2022 What Is Your Relationship Status? MIGRATION.397392 5671 Information not available 12/14/2022 Do You Use Your Seat Belt Or Car Seat Routinely? Yes MIGRATION.364942 7254 Information not available 12/14/2022 Do You Have Smoke And Carbon Monoxide Detectors In Your Home? Yes MIGRATION.335213 8681 Information not available 12/14/2022 Are You Passively Exposed To Smoke? No MIGRATION.171161 3964 Information not available 12/14/2022 Are There Any Smokers In Your House? No MIGRATION.115974 8367 Information not available 12/14/2022 Do You Participate In Social Media? No MIGRATION.141308 3204 Information not available 12/14/2022 Do You Feel Stressed (tense, Restless, Nervous, Or Anxious, Or Unable To Sleep At Night)? [id number] MIGRATION.209668 3916 Information not available 12/14/2022 Do You Use Any Illicit Or Recreational Drugs? No MIGRATION.661489 7658 Information not available 12/14/2022 Do You Use Sunscreen Routinely? Yes MIGRATION.902913 7428 Information not available 12/14/2022 Has Tobacco Cessation Counseling Been Provided? No MIGRATION.432677 4127 Information not available 12/14/2022 Have You Recently Traveled Abroad? No MIGRATION.105107 7067 Information not available 12/14/2022 Are You Currently In School? No MIGRATION.222347 5660 Information not available 12/14/2022 Do You Have Any Dietary Restrictions? No MIGRATION.602292 6914 Information not available 12/14/2022 Do You Or Have You Ever Used Any Other Forms Of Tobacco Or Nicotine? No MIGRATION.207178 0233 Information not available 12/14/2022 Sex: Unknown Functional Status Question Answer Note LastModified by [employer] Details LastModified Time Do you have difficulty walking or climbing stairs? No MIGRATION.6067981 026 Information not available 12/14/2022 Do you have transportation difficulties? No MIGRATION.9965564 026 Information not available 12/14/2022 Are you able to walk? YESWOREST MIGRATION.2784257 026 Information not available 12/14/2022 Do you have difficulty doing errands alone? No MIGRATION.8358585 026 Information not available 12/14/2022 Are you able to care for yourself? Yes MIGRATION.3506991 026 Information not available 12/14/2022 Do you have difficulty dressing or bathing? No MIGRATION.9237804 026 Information not available 12/14/2022 What is your exercise level? None Information not available 02/28/2023 Mental Status Question Answer Note LastModified by [employer] Details LastModified Time Do you have difficulty concentrating, remembering or making decisions? No MIGRATION.[id number] 6 Information not available 12/14/2022 Family History Relationship Description Onset Age of this Age Resolved Age Notes LastModified by Organization Details LastModified Time Mother Family history of stroke Not available 2022 08:19:41 Father Malignant tumor of esophagus Not available 2022 08:20:04 Sister Malignant neoplasm of uterus Not available 2022 08:20:29 Medical History Condition Response BRONCHITIS Y CANCER: SPECIFY Y ALLERGIES/HAYFEVER Y OSTEOPOROSIS Y HYPERTENSION Y HIGH CHOLESTEROL / HYPERLIPIDEMIA Y Gynecological History Statement/Question Response If Post Menopausal, Age at Menopause Date of Last Mammogram 03/01/2023 Date of Last Colonoscopy Most Recent Bone Density Date of LMP Date of Last Pap Smear Most Recent Mammogram Obstetrics History GPAL:G 0 P 0 0 0 0 Immunizations Vaccine Type Date Status Note Provider Nam e and Address Organization Details Recorded Time Influenza, split virus, trivalent, preservative 6 completed Not Available [facility] 12/14/2022 02:54:14 Influenza, split virus, quadrivalent, preservative 2 completed Not Available [facility] 12/14/2022 02:54:14 COVID-19, mRNA, LNP-S, PF, 100 mcg/0.5mL dose or 50 mcg/0.25mL dose 1 completed Not Available [facility] 12/14/2022 02:54:14 COVID-19, mRNA, LNP-S, PF, 100 mcg/0.5mL dose or 50 mcg/0.25mL dose 1 completed Not Available [facility] 12/14/2022 02:54:15 Influenza, split virus, quadrivalent, preservative 0 completed Not Available [facility] 12/14/2022 02:54:15 Influenza, split virus, quadrivalent, preservative 9 completed Not Available [facility] 12/14/2022 02:54:15 Influenza, split virus, quadrivalent, preservative 8 completed Not Available [facility] 12/14/2022 02:54:15 Influenza, split virus, quadrivalent, preservative 7 completed Not Available [facility] 12/14/2022 02:54:15 pneumococcal polysaccharide PPV23 5 completed Not Available [facility] 12/14/2022 02:54:15 Influenza, split virus, trivalent, preservative 4 completed Not Available [facility] 12/14/2022 02:54:16 DTaP 2 completed Not Available [facility] 12/14/2022 02:54:16 zoster live 2 completed Not Available [facility] 12/14/2022 02:54:16 Influenza, high-dose, quadrivalent, PF 1 completed Not Available [facility] 12/14/2022 02:54:16 MMR 9 completed Not Available [facility] 12/14/2022 02:54:16 pneumococcal polysaccharide PPV23 9 completed Not Available [facility] 12/14/2022 02:54:16 Pneumococcal conjugate PCV 13 7 completed Not Available [facility] 12/14/2022 02:54:17 Influenza, split virus, quadrivalent, preservative 5 completed Not Available [facility] 12/14/2022 02:54:17 Past Encounters Encounter ID Performer Location Encounter Start Date Encounter Closed Date Diagnosis/Indication Diagnosis SNOMED-CT Code Diagnosis ICD10 Code Diagnosis Note [id number] [facility] Podiatry Irene Mcgill [address] [facility] [address] [place] [address] 01/11/2021 00:00:00 01/12/2021 10:10:40 [id number] [facility] [place] [address] 01/27/2021 00:00:00 01/27/2021 09:04:03 [id number] [facility] [place] [address] 02/03/2021 00:00:00 03/03/2021 16:39:32 [id number] [facility] [place] [address] 02/10/2021 00:00:00 02/10/2021 09:37:05 [id number] [facility] [place] [address] [place] [address] 02/18/2021 00:00:00 02/18/2021 12:50:54 [id number] [facility] [place] [address] [place] [address] 03/24/2021 00:00:00 03/24/2021 09:33:12 [id number] [facility] [place] [address] [place] [address] 04/22/2021 00:00:00 04/22/2021 10:11:30 [id number] [facility] [place] [address] [place] [address] 04/26/2021 00:00:00 04/26/2021 16:23:23 [id number] [facility] [place] [address] [place] [address] 07/05/2021 00:00:00 07/05/2021 09:03:11 [id number] [facility] [place] [address] [place] [address] 07/07/2021 00:00:00 07/08/2021 08:10:03 [id number] [facility] [place] [address] [place] [address] 08/16/2021 00:00:00 08/16/2021 09:51:06 [id number] [facility] [place] [address] [place] [address] 09/13/2021 00:00:00 09/13/2021 11:08:58 [id number] [facility] [place] [address] [place] [address] 10/11/2021 00:00:00 10/11/2021 09:43:22 [id number] [place] [address] [place] [address] 01/03/2022 00:00:00 01/03/2022 09:15:48 [id number] [place] [address] [place] [address] 08/09/2022 00:00:00 08/09/2022 09:04:40 [id number] Yael Gillette NP [address] [address] 02/28/2023 08:02:02 02/28/2023 09:05:14 Allergic reaction to wasp sting 201700875 T63.461A EpiPen Vitamin B1 2 deficiency (non anemic) 80552197 E53.8 B12 1,000 mcg monthly. Hasn't had in a while. Essential hypertension 83056486 I10 ASA 81 mg po daily.Losa rtan 25 mg po daily.Meto prolol Tartrate 50 mg po bid. Gastroesop hageal reflux disease 600668752 K21.9 Nexium 40 mg po daily. Needs to have PA.Has tried other meds before, but was several many years ago. Hyperlipidemia 07442867 E78.5 Simvastati n 20 mg po nightly. Osteopenia 493374031 M85 .80 Dexa 1. Ordered 02/28/23. Vitamin D deficiency 347 00519 E55.9 vit d po daily. Constipation 37686530 K5 9.00 Diet mods. Plantar fasciitis 371514 003 M72.2 Seeing Chiro. 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 Prediabetes 689597488 R7 3.03 Metformin ER 500 mg po daily. Seasonal a llergic rhinitis 754716133 J30.2 Montelukas t 10 mg po daily. Postmenopausal state 764 80657 Z78.0 Last in 2020. Screening for malignant neoplasm of colon 649362859 Z12.11 Unsure last time with Dr. Williamson. GI referral ordered. Health Concerns Section Related Observation LastModified by Organization Detai ls LastModified Time None Recorded Concern Status LastModified by Organization Details LastModified Time None Recorded Advance Directives Directive Y: Payers Encounter Date Sequence Insurance Name Policy Number Policy Joseph Covered Member ID Joseph Member ID Guarantor Name 02/28/2023 1 [place] Beatris Garcia [id number] Beatris Garcia 02/28/2023 2 [place] PROGRAM (PPO) 111 Beatris Garcia [id number] Beatris Garcia Notes Date Note Type Note Provider Name and Address Organization Details Recorded Time 02/28/2023 text/html Here for new patient appt.Transfer from [facility] office. Has been doing well and feeling well. Wants labs to see if b12 inj due.Lipid- working on it. Just trigs, but that is pasta and sweets.Prediabet es- low carb, low sugar diet.Osteopenia- Vit d daily and DEXA due.Mammogram scheduled for tomorrow. Yael Gillette NP [address] [facility] [address], [place], [address], [place] [facility] [employer] 02/28/2023 09:02:32 OBGyn Episode No OBEpisode recorded.
--- OUTSIDE RECORDS SUMMARY | 2025-01-31 10:43 | XMS_ITS | Clinical Summary ---
Author Organization [facility] Address [address] [place] [address] Care Team Providers Care Palliative Care Physician Name Role Phone None, Physician Primary Care Provider Unavailabl e Source Comments [facility],non-owned Affiliates and Associated Physician Practices is amultiple site organization consisting of ambulatory clinics and hospital sitesin [place], [place], [place] and [place]. This disclosure is being madepursuant to the Care Everywhere program and may not contain all information available regarding this patient. Last updated 18.[facility] [place] Allergies Active Allergy Reactions Criticality Noted Date Comments Amoxicillin Other 09/14/2023 Medications * Be aware that medications may not be up to date on this document. Alwaysverify current medications with the patient. esomeprazole (NexIUM) 40 MG capsule 07/19/2023 Active simvastatin (Zocor) 20 MG tablet 07/03/2023 Active montelukast (Singulair) 10 MG tablet Take 1 (one) tablet by mouth once daily 08/27/2023 Active vitamin D, ergocalciferol, (Drisdol) 1.25 MG (79246 UT) capsule Take 1 (one) capsule by [...] drink = 0.6 oz pur e alcohol) Comments Unknown Sex and Gender Information Value Date Recorded Sex Assigned at Not on file Legal Sex Female 10:53 AM ETL LEAD Gender Identity Not on file Sexual Orientation [...] VACCINE (3 - season) 2024 12/31/2020, 12/02/2020 DEPRESSION SCREENING 10/16/2024 INFLUENZA VACCINE (Season Ended) 2025 08/04/2022, 07/15/2020, 06/26/2019, Additional history exists Respiratory Syncytial Virus (RSV) Vaccine Pt: or [...] age to complete this topic Insurance MEDICARE MEDICARE [facility] Care Teams Palliative Care Physician Relationship Specialty Start Date End Date None, Physician [address] [place] [address] PCP - General 09/14/23
[2025-01-31 12:23] LABS: IFOB Positive Control Positive; Immunochemical Fecal Occult Bl Positive (N)
== END 2025-01-31 10:40 | disposition home or self-care (01) ==
PROVIDERS: PCP Nurse Practitioner Adult Health; Visit Provider Nurse Practitioner Adult Health
DX: D64.9 Anemia, unspecified (principal)
CPT/HCPCS: 82274

== ENCOUNTER 2025-05-02 00:44 | Day surgery (SDC) | payer MEDICARE, BC, SELFPAY ==
[2025-04-22 12:10] VITALS: BMI 24.8
--- OUTSIDE RECORDS SUMMARY | 2025-05-02 00:47 | XMS_ITS | Data Portability ---
Author Organization [facility] [employer], Main Office Address [address] [place] [address] Assessment Encounter Date Assessment Date Assessment LastModified by Organization Details LastModified Time 02/28/2023 02/28/2023 Mammogram scheduled for 03/01/23. Colonoscopy- Hysterectomy. Not available 02/28/2023 08:46:54 Plan of Treatment Reminders Order Date Submit Date Provider Last Modified By Organization Details Last Modified Time Details Appointments None recorded. Lab BMP, serum or plasma 2022 023 [facility] (Lab), [address] [place], [address], 3 14:47:42 glycohemogl obin, total, blood 2022 023 [facility] (Lab), [address] [place], [address], 3 14:59:06 lipid panel, serum 2022 023 [facility] (Lab), [address] [place], [address], 3 14:47:39 vitamin B12 + folate, serum or blood [address] [facility] [address] ([facility] [address] [place], [address], 3 08:46:46 Referral gastroenter ologist referral - screening colonoscopy . Pt unsure last. (New patient to our office today) 2022 023 [email or web address] Jagdeep Venegas MD, [address], [address], [place], [address], 18:10:38 Procedures None recorded. Surgeries None recorded. Imaging bone density - last in 2020. 2022 023 [facility], [address], [address], [place], [address], 09:05:00 Medication Orders valacyclovi r 1 gram tablet [address] [facility], [facility], [place], [address], 08:53:27 esomeprazol e magnesium 40 mg capsule,del ayed release [email or web address] [facility], [facility], [place], [address], 3 07:55:22 EpiPen 2-Miquel 0.3 mg/0.3 mL injection, auto-inject or [email or web address] [facility], [place], [address], 3 07:46:56 Patient TargetsNo targets recorded. Patient Instructions Encounter Date Encounter Id Patient Instructions Last Modified By Organization Details Last Modified Time 02/28/2023 [id number] FU in 6 mo for prediabetes, b12 low, htn, gerd, allergies, cold sores, constipation, lipid Not available 02/28/2023 09:01:24 Reason for Referral [employer] Referral for Screening for malignant neoplasm of colon screening colonoscopy. Pt unsure last. (New patient to our office today) Referring Physician: Yael Gillette, Family Medicine, Encounter Date: 02/28/2023 Results Created Date Observation Date Name Description Value Unit Range Abnormal Flag Note LastModifiedBy Organization Detail LastModifiedTime 01/04/20 22 01/03/2022 FOLAT E, SERUM /PLAS MA folate 12.7 NG/mL 2.76- Not Available [facility] (Lab) [address] [place], [address], 01/03/2022 15:24:09 01/04/20 22 01/03/2022 VITAM IN B12 (ELAINA OLMAN ) vb12 >1000 pg/mL 239-93 1 high Not Available [facility] (Lab) [address] [place], [address], 01/03/2022 15:24:07 01/04/20 22 01/03/2022 BASIC METAB OLIC PANEL sodium 137 mmol/ L 137-14 5 Not Available [facility] (Lab) [address] [place], [address], 01/03/2022 14:40:52 01/04/20 22 01/03/2022 BASIC METAB OLIC PANEL potassium 4.5 mmol/ L 3.5-5. 1 Not Available [facility] (Lab) [address] [place], [address], 01/03/2022 14:40:52 01/04/20 22 01/03/2022 BASIC METAB OLIC PANEL chloride 103 mmol/ L 98-107 Not Available [facility] (Lab) [address] [place], [address], 01/03/2022 14:40:52 01/04/20 22 01/03/2022 BASIC METAB OLIC PANEL carbon dioxide 29 mmol/ L 22-30 Not Available [facility] (Lab) [address] [place], [address], 01/03/2022 14:40:52 01/04/20 22 01/03/2022 BASIC METAB OLIC PANEL agap 9.5 mmol/ L 14-22 low Not Available [facility] (Lab) [address] [place], [address], 01/03/2022 14:40:52 01/04/20 22 01/03/2022 BASIC METAB OLIC PANEL glucose 119 mg/dL 70-99 high Not Available [facility] (Lab) [address] [place], [address], 01/03/2022 14:40:52 01/04/20 22 01/03/2022 BASIC METAB OLIC PANEL BUN 16 mg/dL 8-19 Not Available [facility] (Lab) [address] [place], [address], 01/03/2022 14:40:52 01/04/20 22 01/03/2022 BASIC METAB OLIC PANEL creatinine 0.71 mg/dL 0.66-1 .25 Not Available [facility] (Lab) [address] [place], [address], 01/03/2022 14:40:52 01/04/20 22 01/03/2022 BASIC METAB OLIC PANEL GFR >60 Refer ence Range : [place] ge GFR Healt hy Adult : >60 [...] calcu lator is avail able on the [facility] websi te: https ://lang montero.o mirtha/pr ofess ional s/kdo qi/gf r_cal culat or Not Available [facility] (Lab) [address] [place], [address], 01/03/2022 14:40:52 01/04/20 22 01/03/2022 BASIC METAB OLIC PANEL calcium 10.1 mg/dL 8.4-10 .2 Not Available [facility] (Lab) [address] [place], [address], 01/03/2022 14:40:52 01/04/20 22 01/03/2022 LIPID PANEL cholesterol 198 mg/dL 140-19 9 NIH CAROL NSUS RECOM MENDA TION FOR VIVIENNE STERO L: ADULT CHILD LOW RISK: <200 <170 BORDE RLINE : <200- 239 ----- HIGH RISK: >240 >200 Not Available [facility] (Lab) [address] [place], [address], 01/03/2022 14:40:44 01/04/20 22 01/03/2022 LIPID PANEL triglyceride s 145 mg/dL 0-150 NIH CAROL NSUS REPOR T RECOM MENDA TION FOR TRIGL YCERI SONNY: ADULT CHILD LOW RISK: <150 ----- BODER LINE: 150-1 99 ----- HIGH RISK: >200 ----- Not Available [facility] (Lab) [address] [place], [address], 01/03/2022 14:40:44 01/04/20 22 01/03/2022 LIPID PANEL HDL cholesterol 52 mg/dL 40- Not Available [facility] (Lab) [address] [place], [address], 01/03/2022 14:40:44 01/04/20 22 01/03/2022 LIPID PANEL [...] WILL NOT BE REPOR AUDREY. Not Available [facility] (Lab) [address] [place], [address], 01/03/2022 14:40:44 01/04/20 22 01/03/2022 HEPAT IC/LI ALINA PANEL biliurubin,u ncong. (indirect) 0.60 mg/dL 0.00-1 .1 Not Available [facility] (Lab) [address] [place], [address], 01/03/2022 14:40:42 01/04/20 22 01/03/2022 HEPAT IC/LI ALINA PANEL alkaline phosphatase 65 U/L 38-126 Not Available [facility] (Lab) [address] [place], [address], 01/03/2022 14:40:42 01/04/20 22 01/03/2022 HEPAT IC/LI ALINA PANEL alanine aminotransfe rase 16 U/L 0-35 Not Available [facility] (Lab) [address] [place], [address], 01/03/2022 14:40:42 01/04/20 22 01/03/2022 HEPAT IC/LI ALINA PANEL aspartate aminotransfe rase 22 U/L 15-37 Not Available [facility] (Lab) [address] [place], [address], 01/03/2022 14:40:42 01/04/20 22 01/03/2022 HEPAT IC/LI ALINA PANEL bilirubin, total 0.40 mg/dL 0.20-1 .30 Not Available [facility] (Lab) [address] [place], [address], 01/03/2022 14:40:42 01/04/20 22 01/03/2022 HEPAT IC/LI ALINA PANEL bilirubin, conjugated (direct) 0.00 mg/dL 0.00-0 .30 Not Available [facility] (Lab) [address] [place], [address], 01/03/2022 14:40:42 01/04/20 22 01/03/2022 HEPAT IC/LI ALINA PANEL total protein 7.1 g/dL 6.3-8. 2 Not Available [facility] (Lab) [address] [place], [address], 01/03/2022 14:40:42 01/04/20 22 01/03/2022 HEPAT IC/LI ALINA PANEL albumin 4.6 g/dL 3.0-4. 4 high Not Available [facility] (Lab) [address] [place], [address], 01/03/2022 14:40:42 01/04/20 22 01/03/2022 HEPAT IC/LI ALINA PANEL globulin 2.5 g/dL 2.6-4. 2 low Not Available [facility] (Lab) [address] [place], [address], 01/03/2022 14:40:42 01/04/20 22 01/03/2022 HEPAT IC/LI ALINA PANEL A/G ratio 1.8 ratio 1.0-2. 0 Not Available [facility] (Lab) [address] [place], [address], 01/03/2022 14:40:42 01/04/20 22 01/03/2022 VITAM IN D 25-HY DROXY vd25oh 58.9 NG/mL 30-100 Vitam in D Statu s: Defic ient: <20 ng/mL Insuf ficie nt: 20-29 ng/mL Suffi cient : 30-10 0 ng/mL Not Available [facility] (Lab) [address] [place], [address], 01/03/2022 14:40:09 01/04/20 22 01/03/2022 HEMOG LOBIN A1C HA1C 6.1 % 4.0-6. 0 high Diabe joyce Scree dakota Crite lyudmila: <5.7% Consi stent with absen ce of diabe joyce 5.7-6 .4% Consi stent with incre ased risk for diabe joyce (pred iabet es) >OR=6 .5% Consi stent with diabe joyce REFER ENCE: Diabe joyce Care (Barros ppl.1 ):s13 -s22 Not Available [facility] (Lab) [address] [place], [address], 01/03/2022 13:16:37 08/09/20 22 08/10/2022 HEMOG LOBIN A1C HA1C 6.0 % 4.0-6. 0 Diabe joyce Scree dakota Crite lyudmila: <5.7% Consi stent with absen ce of diabe joyce 5.7-6 .4% Consi stent with incre ased risk for diabe joyce (pred iabet es) >OR=6 .5% Consi stent with diabe joyce REFER ENCE: Diabe joyce Care (Barros ppl.1 ):s13 -s22 Not Available [facility] (Lab) [address] [place], [address], 08/10/2022 15:12:23 08/09/2008/09/2022 FOLAT E, SERUM /PLAS MA folate 8.83 NG/mL 2.76-2 0.0 Not Available [facility] (Lab) [address] [place], [address], 08/09/2022 15:07:59 08/09/20 22 08/09/2022 VITAM IN B12 (ELAINA OLMAN ) vb12 >1000 pg/mL 239-93 1 high Not Available [facility] (Lab) [address] [place], [address], 08/09/2022 15:07:55 08/09/20 22 08/09/2022 VITAM IN D 25-HY DROXY vd25oh 51.1 NG/mL 30-100 Vitam in D Statu s: Defic ient: <20 ng/mL Insuf ficie nt: 20-29 ng/mL Suffi cient : 30-10 0 ng/mL Not Available [facility] (Lab) [address] [place], [address], 08/09/2022 14:21:59 08/09/20 22 08/09/2022 BASIC METAB OLIC PANEL sodium 137 mmol/ L 137-14 5 Not Available [facility] (Lab) [address] [place], [address], 08/09/2022 14:10:02 08/09/20 22 08/09/2022 BASIC METAB OLIC PANEL potassium 5.3 mmol/ L 3.5-5. 1 high Not Available [facility] (Lab) [address] [place], [address], 08/09/2022 14:10:02 08/09/20 22 08/09/2022 BASIC METAB OLIC PANEL chloride 106 mmol/ L 98-107 Not Available [facility] (Lab) [address] [place], [address], 08/09/2022 14:10:02 08/09/20 22 08/09/2022 BASIC METAB OLIC PANEL carbon dioxide 27 mmol/ L 22-30 Not Available [facility] (Lab) [address] [place], [address], 08/09/2022 14:10:02 08/09/20 22 08/09/2022 BASIC METAB OLIC PANEL anion gap 9.3 mmol/ L 14-22 low Not Available [facility] (Lab) [address] [place], [address], 08/09/2022 14:10:02 08/09/20 22 08/09/2022 BASIC METAB OLIC PANEL glucose 118 mg/dL 70-99 high Not Available [facility] (Lab) [address] [place], [address], 08/09/2022 14:10:02 08/09/20 22 08/09/2022 BASIC METAB OLIC PANEL BUN 15 mg/dL 8-19 Not Available [facility] (Lab) [address] [place], [address], 08/09/2022 14:10:02 08/09/20 22 08/09/2022 BASIC METAB OLIC PANEL creatinine 0.79 mg/dL 0.66-1 .25 Not Available [facility] (Lab) [address] [place], [address], 08/09/2022 14:10:02 08/09/20 22 08/09/2022 BASIC METAB OLIC PANEL GFR >60 Refer ence Range : [place] ge GFR Healt hy Adult : >60 [...] of age, a pedia tric GFR calcu latarnold is avail able on the [facility] websi te: https :[email or web address] perdomo.renetta [email or web address] mirtha/pr ofess ional s/kdo qi/gf r_cal culat or Not Available [facility] (Lab) [address] [place], [address], 08/09/2022 14:10:02 08/09/20 22 08/09/2022 BASIC METAB OLIC PANEL calcium 9.9 mg/dL 8.4-10 .2 Not Available [facility] (Lab) [address] [place], [address], 08/09/2022 14:10:02 08/09/20 22 08/09/2022 LIPID PANEL cholesterol 196 mg/dL 140-19 9 NIH CAROL NSUS RECOM MENDA TION FOR VIVIENNE STERO L: ADULT CHILD LOW RISK: <200 <170 BORDE RLINE : <200- 239 ----- HIGH RISK: >240 >200 Not Available [facility] (Lab) [address] [place], [address], 08/09/2022 14:09:52 08/09/20 22 08/09/2022 LIPID PANEL triglyceride s 183 mg/dL 0-150 high NIH CAROL NSUS REPOR T RECOM MENDA TION FOR TRIGL YCERI SONNY: ADULT CHILD LOW RISK: <150 ----- BODER LINE: 150-1 99 ----- HIGH RISK: >200 ----- Not Available [facility] (Lab) [address] [place], [address], 08/09/2022 14:09:52 08/09/20 22 08/09/2022 LIPID PANEL HDL cholesterol 45 mg/dL 40- Not Available [facility] (Lab) [address] [place], [address], 08/09/2022 14:09:52 08/09/20 22 08/09/2022 LIPID PANEL LDL cholesterol, calculated 114 mg/dL [...] WILL NOT BE REPOR AUDREY. Not Available [facility] (Lab) [address] [place], [address], 08/09/2022 14:09:52 08/09/2008/09/2022 HEPAT IC/LI ALINA PANEL biliurubin,u ncong. (indirect) 0.40 mg/dL 0.00-1 .1 Not Available [facility] (Lab) [address] [place], [address], 08/09/2022 14:09:40 08/09/20 22 08/09/2022 HEPAT IC/LI ALINA PANEL alkaline phosphatase 78 U/L 38-126 Not Available [facility] (Lab) [address] [place], [address], 08/09/2022 14:09:40 08/09/20 22 08/09/2022 HEPAT IC/LI ALINA PANEL alanine aminotransfe rase 15 U/L 0-35 Not Available [facility] (Lab) [address] [place], [address], 08/09/2022 14:09:40 08/09/20 22 08/09/2022 HEPAT IC/LI ALINA PANEL aspartate aminotransfe rase 22 U/L 15-37 Not Available [facility] (Lab) [address] [place], [address], 08/09/2022 14:09:40 08/09/20 22 08/09/2022 HEPAT IC/LI ALINA PANEL bilirubin, total 0.40 mg/dL 0.20-1 .30 Not Available [facility] (Lab) [address] [place], [address], 08/09/2022 14:09:40 08/09/20 22 08/09/2022 HEPAT IC/LI ALINA PANEL bilirubin, conjugated (direct) 0.00 mg/dL 0.00-0 .30 Not Available [facility] (Lab) [address] [place], [address], 08/09/2022 14:09:40 08/09/2008/09/2022 HEPAT IC/LI ALINA PANEL total protein 6.7 g/dL 6.3-8. 2 Not Available [facility] (Lab) [address] [place], [address], 08/09/2022 14:09:40 08/09/20 22 08/09/2022 HEPAT IC/LI ALINA PANEL albumin 4.4 g/dL 3.0-4. 4 Not Available [facility] (Lab) [address] [place], [address], 08/09/2022 14:09:40 08/09/20 22 08/09/2022 HEPAT IC/LI ALINA PANEL globulin 2.3 g/dL 2.6-4. 2 low Not Available [facility] (Lab) [address] [place], [address], 08/09/2022 14:09:40 08/09/20 22 08/09/2022 HEPAT IC/LI ALINA PANEL A/G ratio 1.9 ratio 1.0-2. 0 Not Available [facility] (Lab) [address] [place], [address], 08/09/2022 14:09:40 02/29/20 23 02/28/2023 LIPID PANEL cholesterol 192 mg/dL 140-19 9 NIH CAROL NSUS RECOM MENDA TION FOR VIVIENNE STERO L: ADULT CHILD LOW RISK: <200 <170 BORDE RLINE : <200- 239 ----- HIGH RISK: >240 >200 Not Available [facility] (Lab) [address] [place], [address], 02/28/2023 14:47:39 02/29/20 23 02/28/2023 LIPID PANEL triglyceride s 175 mg/dL 0-150 high NIH CAROL NSUS REPOR T RECOM MENDA TION FOR TRIGL YCERI SONNY: ADULT CHILD LOW RISK: <150 ----- BODER LINE: 150-1 99 ----- HIGH RISK: >200 ----- Not Available [facility] (Lab) [address] [place], [address], 02/28/2023 14:47:39 02/29/20 23 02/28/2023 LIPID PANEL HDL cholesterol 49 mg/dL 40- Not Available [facility] (Lab) [address] [place], [address], 02/28/2023 14:47:39 02/29/20 23 02/28/2023 LIPID PANEL [...] WILL NOT BE REPOR AUDREY. Not Available [facility] (Lab) [address] [place], [address], 02/28/2023 14:47:39 02/29/20 23 02/28/2023 BASIC METAB OLIC PANEL sodium 137 mmol/ L 137-14 5 Not Available [facility] (Lab) [address] [place], [address], 02/28/2023 14:47:42 02/29/20 23 02/28/2023 BASIC METAB OLIC PANEL potassium 4.9 mmol/ L 3.5-5. 1 Not Available [facility] (Lab) [address] [place], [address], 02/28/2023 14:47:42 02/29/20 23 02/28/2023 BASIC METAB OLIC PANEL chloride 103 mmol/ L 98-107 Not Available [facility] (Lab) [address] [place], [address], 02/28/2023 14:47:42 02/29/20 23 02/28/2023 BASIC METAB OLIC PANEL carbon dioxide 27 mmol/ L 22-30 Not Available [facility] (Lab) [address] [place], [address], 02/28/2023 14:47:42 02/29/20 23 02/28/2023 BASIC METAB OLIC PANEL anion gap 11.9 mmol/ L 14-22 low Not Available [facility] (Lab) [address] [place], [address], 02/28/2023 14:47:42 02/29/20 23 02/28/2023 BASIC METAB OLIC PANEL glucose 125 mg/dL 70-99 high Not Available [facility] (Lab) [address] [place], [address], 02/28/2023 14:47:42 02/29/20 23 02/28/2023 BASIC METAB OLIC PANEL BUN 12 mg/dL 8-19 Not Available [facility] (Lab) [address] [place], [address], 02/28/2023 14:47:42 02/29/20 23 02/28/2023 BASIC METAB OLIC PANEL creatinine 0.77 mg/dL 0.66-1 .25 Not Available [facility] (Lab) [address] [place], [address], 02/28/2023 14:47:42 02/29/20 23 02/28/2023 BASIC METAB OLIC PANEL GFR >60 Refer ence Range : [place] ge GFR Healt hy Adult : >60 [...] calcu lator is avail able on the [facility] websi te: https ://lang perdomo.renetta montero.o rg/pr khadra wangal s/kdo qi/gf r_cal culat or Not Available [facility] (Lab) [address] [place], [address], 02/28/2023 14:47:42 02/29/2002/28/2023 BASIC METAB OLIC PANEL calcium 9.9 mg/dL 8.4-10 .2 Not Available [facility] (Lab) [address] [place], [address], 02/28/2023 14:47:42 02/29/20 23 02/28/2023 HEMOG LOBIN A1C HA1C 5.9 % 4.0-6. 0 Diabe joyce Scree dakota Crite lyudmila: <5.7% Consi stent with absen ce of diabe joyce 5.7-6 .4% Consi stent with incre ased risk for diabe joyce (pred iabet es) >OR=6 .5% Consi stent with diabe joyce REFER ENCE: Diabe joyce Care 2015, 39(Barros ppl.1 ):s13 -s22 Not Available [facility] (Lab) [address] [place], [address], 02/28/2023 14:59:06 02/29/20 23 02/28/2023 VITAM IN B12 (ELAINA OLMAN ) vb12 903 pg/mL 239-93 1 Not Available [facility] (Lab) [address] [place], [address], 02/28/2023 15:49:50 02/29/20 23 02/28/2023 FOLAT E, SERUM /PLAS MA folate 11.7 NG/mL 2.76-2 0.0 Not Available [facility] (Lab) [address] [place], [address], 02/28/2023 15:49:53 12/31/19 22 12/30/2021 MAMMO , scree dakota, bilat eral No observ ation record ed. [id number], [address], 12/14/2022 02:55:12 08/31/20 22 08/31/2022 tom can cardi olite stres s test (PROC ) No observ ation record ed. [id number] [address], [address], 12/14/2022 02:55:12 08/31/20 22 08/31/2022 tom can cardi olite stres s test (PROC ) No observ ation record ed. [id number], [address], 12/14/2022 02:55:12 11/08/31/2022 Kaymu can cardi olite stres s test (PROC ) No observ ation record ed. [id number] [facility] [address], [place], [address], 12/14/2022 02:55:12 03/01/20 23 03/01/2023 MAMMO , scree dakota, digit al, bilat eral No observ ation record ed. [email or web address] [facility] [address] [facility] [address], [place], [address], 03/02/2023 09:11:43 03/01/20 23 03/01/2023 MAMMO , scree dakota, bilat eral No observ ation record ed. [email or web address] [facility] [address] [facility] [address], [place], [address], 03/02/2023 12:33:11 Result Notes None recorded. Problems Name Problem SNOMED Code Status Onset Date Resolution Date Notes Provider Name and Address Organization Details Recorded Time Disorder of knee 684270871 Active Not Available [employer] 3 02:44:44 Hyperchol esterolem ia 03327432 Active Not Available [employer] 3 02:44:44 Constipat ion 60822009 Active Not Available [employer] 3 02:44:44 Plantar fasciitis 261774824 Active Not Available [employer] 3 02:44:44 Gastroeso phageal reflux disease 070379387 Active Not Available [facility] 3 02:44:44 Dyspnea 985511839 Completed Not Available [facility] 3 02:44:44 Osteopeni a 878851976 Active Not Available [facility] 3 02:44:45 Vitamin D deficienc y 73391695 Active Not Available [facility] 3 02:44:45 Hypertens amy disorder 62843371 Active Not Available [facility] 3 02:44:45 Hyperlipi demia 48913897 Active Not Available [facility] 3 02:44:45 Essential hypertens ion 15051023 Active Not Available [facility] 3 02:44:45 Hyperglyc emia 15689269 Active Not Available [facility] 3 02:44:46 Influenza caused by Influenza A virus 546896327 Completed 201602/21/2017 Not Available [facility] 3 02:44:45 Disorder of vitamin B12 343388776 Active 2019 Not Available [facility] 3 02:44:45 Plantar fasciitis of right foot 63132309922 474729 Active 2020 Not Available [facility] 3 02:44:44 Tibialis posterior tendiniti s 786543813 Active 2020 Not Available [facility] 3 02:44:44 Prediabet es 892724378 Active 2021 Not Available [facility] 3 02:44:45 Allergic reaction to wasp sting 050879951 Active 2022 Yael Gillette NP [address], [place], [address] , [facility] [employer] [facility] [employer] [facility] 3 08:37:08 Vitamin B12 deficienc y (non anemic) 03538533 Active 2022 Yael Gillette NP [address], [address], [place], [address] , [facility] [employer] [facility] [employer] [facility] 3 08:38:16 Herpes labialis 2366690 Active 2022 Yael Gillette NP [address], [place], [address] , [facility] [employer] [facility] [employer] [facility] 3 08:43:05 Seasonal allergic rhinitis 637980723 Active 2022 Yael Gillette NP [address], [place], [address] , [facility] [employer] [facility] [employer] [facility] 3 08:44:56 Problem Notes None recorded. Procedures Surgical History Date Name Laterality Status Provider Name and Address Organization Details Recorded Time 10/16/18 99 lumpectomy of right breast completed Yael Zavaleta RN [facility] 02/28/2023 08:21:25 10/16/18 99 lumpectomy of right breast completed Yael Zavaleta RN [facility] 02/28/2023 08:21:45 10/16/18 88 hysterectomy completed Yael Zavaleta RN [facility] 02/28/2023 08:21:56 Imaging Results None recorded. Procedure Notes None recorded. Medical Equipment None Reported. Allergies Allergen ID Allergen Name Allergen Category Reaction Reaction Severity Criticality Documentation Date Start Date Code Code System Note Provider Name and Address Organization Details Recorded Time 4211 amoxicill in medicatio n Not available Not available Not available 12/14/2022 723 RxNorm bee/w asp sting s dizzy and swoll en Yael Gillette, FANTA [address] [facility] [address], [place], [address] [place] [address] 08:36:12 Medications Name Sig Start Date Stop [...] Not Available No t Available Fluad Quad 9334-1094(6 5yr up)(PF) 60 mcg (15 mcg x 4)/0.5mL IM syringe ADM 0.5ML IM UTD 11/16 completed Not Available Not Available Not Available Vitals Date Recorded Body mass index (BMI) Body height Oxygen saturation Oxygen saturation in Arterial blood by Pulse oximetry Heart rate Body temperature Body weight Systolic And Diastolic Provider Name and Address Organization Details Last Updated DateTime 2 29.6 kg/m2 160.02 cm 99 % 99 % 64 /min 97 [degF] 80902.9 3 g 142/76 mm[Hg] Not Available [facility] 3 02:42:36 Date Recorded Body height Body mass index (BMI) Body weight Body temperature Heart rate Respiratory rate Oxygen saturation Oxygen saturation in Arterial blood by Pulse oximetry Systolic And Diastolic Provider Name and Address Organization Details Last Updated DateTime 3 160.02 cm 28.6 kg/m2 97549.4 2 g 96.6 [degF] 54 /min 16 /min 97 % 97 % 152/72 mm[Hg] Yael Zavaleta RN [place] - [employer] [facility] 3 08:19:17 Date Recorded Body mass index (BMI) Body height Oxygen saturation Oxygen saturation in Arterial blood by Pulse oximetry Heart rate Body temperature Body weight Systolic And Diastolic Provider Name and Address Organization Details Last Updated DateTime 2 29.2 kg/m2 160.02 cm 96 % 96 % 67 /min 97.3 [degF] 82580.7 4 g 136/80 mm[Hg] Not Available [facility] 3 02:42:36 Date Recorded Body height Provider Name an d Address Organization Details Last Updated DateTime 10/11/2021 160.02 cm Not Available [facility] 3 02:42:38 Social History Question Answer Notes LastModified by Organizat ion Details LastModified Time Tobacco Smoking Status Never Smoker Not Available [facility] 12/14/2022 02:34:58 Do You Have An Advance Directive? Yes [id number] Information not available 12/14/2022 Do You Wear A Helmet When Biking? Yes MIGRATION.714896 8791 Information not available 12/14/2022 Are You Blind Or Do You Have Difficulty Seeing? No MIGRATION.278063 6183 Information not available 12/14/2022 Is Blood Transfusion Acceptable In An Emergency? Yes Information not available 02/28/2023 What Is Your Level Of Caffeine Consumption? Moderate [id number].[id number] 7906 Information not available 12/14/2022 What Is Your Code Status? Full Code [id number] Information not available 12/14/2022 In The 14 Days Before Symptom Onset, Have You Had Close Contact With A Laboratory-confir med COVID-19 While That Case Was Ill? No MIGRATION.974006 9571 Information not available 12/14/2022 In The 14 Days Before Symptom Onset, Have You Had Close Contact With A Person Who Is Under Investigation For COVID-19 While That Person Was Ill? No MIGRATION.664138 8178 Information not available 12/14/2022 Are You Deaf Or Do You Have Serious Difficulty Hearing? No MIGRATION.202654 3414 Information not available 12/14/2022 What Type Of Diet Are You Following? REGULAR MIGRATION.659772 2206 Information not available 12/14/2022 What Is The Highest Grade Or Level Of School You Have Completed Or The Highest Degree You Have Received? [id number] MIGRATION.783705 8096 Information not available 12/14/2022 Have There Been Any Changes To Your Family Or Social Situation? No MIGRATION.195176 1649 Information not available 12/14/2022 What Is The Fluoride Status Of Your Home? Unknown MIGRATION.868643 1946 Information not available 12/14/2022 Are There Any Guns Present In Your Home? No MIGRATION.068483 6719 Information not available 12/14/2022 Do You Use Insect Repellent Routinely? Yes MIGRATION.794913 8737 Information not available 12/14/2022 Where Do You Live? 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 No MIGRATION.677083 0658 Information not available 12/14/2022 What Is Your Relationship Status? MIGRATION.561935 7490 Information not available 12/14/2022 Do You Use Your Seat Belt Or Car Seat Routinely? Yes MIGRATION.240213 2202 Information not available 12/14/2022 Do You Have Smoke And Carbon Monoxide Detectors In Your Home? Yes MIGRATION.766596 6199 Information not available 12/14/2022 Are You Passively Exposed To Smoke? No MIGRATION.339394 7345 Information not available 12/14/2022 Are There Any Smokers In Your House? No MIGRATION.254401 9759 Information not available 12/14/2022 Do You Participate In Social Media? No MIGRATION.030848 1976 Information not available 12/14/2022 Do You Use Sunscreen Routinely? Yes MIGRATION.487278 8898 Information not available 12/14/2022 Has Tobacco Cessation Counseling Been Provided? No MIGRATION.826480 2128 Information not available 12/14/2022 Have You Recently Traveled Abroad? No MIGRATION.207044 7117 Information not available 12/14/2022 Do You Have Difficulty Walking Or Climbing Stairs? No MIGRATION.961658 8806 Information not available 12/14/2022 Are You Currently In School? No MIGRATION.947891 4465 Information not available 12/14/2022 Do You Have Any Dietary Restrictions? No MIGRATION.819837 7237 Information not available 12/14/2022 Sex: Unknown Functional Status Question Answer Note LastModified by OrganCuffed and Wantedat ion Details LastModified Time Do you use any illicit or recreational drugs? No MIGRATION.0589281 026 Information not available 12/14/2022 Do you or have you ever used any other forms of tobacco or nicotine? No MIGRATION.1374537 026 Information not available 12/14/2022 What is your level of alcohol consumption? None MIGRATION.4942087 026 Information not available 12/14/2022 Are you currently employed? No Information not available 02/28/2023 Do you have transportation difficulties? No MIGRATION.1544105 026 Information not available 12/14/2022 Are you able to walk? YESWOREST MIGRATION.7732129 026 Information not available 12/14/2022 Do you have difficulty doing errands alone? No MIGRATION.7528102 026 Information not available 12/14/2022 Are you able to care for yourself? Yes MIGRATION.9022927 026 Information not available 12/14/2022 Do you have difficulty dressing or bathing? No MIGRATION.3265820 026 Information not available 12/14/2022 What is your exercise level? None Information not available 02/28/2023 Mental Status Question Answer Note LastModified by Organizat ion Details LastModified Time Do you feel stressed (tense, restless, nervous, or anxious, or unable to sleep at night)? [id number] MIGRATION.[id number] 26 Information not available 12/14/2022 Do you have difficulty concentrating, remembering or making decisions? No MIGRATION.05166677 26 Information not available 12/14/2022 Family History Relationship Description Onset Age of this Age Resolved Age Notes LastModified by Organization Details LastModified Time Mother Family history of stroke Not available 2022 08:19:41 Father Malignant tumor of esophagus Not available 2022 08:20:04 Sister Malignant neoplasm of uterus Not available 2022 08:20:29 Medical History Condition Response CANCER: SPECIFY Y BRONCHITIS Y OSTEOPOROSIS Y ALLERGIES/HAYFEVER Y HYPERTENSION Y HIGH CHOLESTEROL / HYPERLIPIDEMIA [...] virus, trivalent, preservative 6 completed Not Available [facility] 12/14/2022 02:54:14 Influenza, split virus, quadrivalent, preservative 2 completed Not Available [facility] 12/14/2022 02:54:14 COVID-19, mRNA, LNP-S, PF, 100 mcg/0.5mL dose or 50 mcg/0.25mL dose 1 completed Not Available [facility] 12/14/2022 02:54:14 COVID-19, mRNA, LNP-S, PF, 100 mcg/0.5mL dose or 50 mcg/0.25mL dose 1 completed Not Available [facility] 12/14/2022 02:54:15 Influenza, split virus, quadrivalent, preservative 0 completed Not Available [facility] 12/14/2022 02:54:15 Influenza, split virus, quadrivalent, preservative 9 completed Not Available [facility] 12/14/2022 02:54:15 Influenza, split virus, quadrivalent, preservative 8 completed Not Available [facility] 12/14/2022 02:54:15 Influenza, split virus, quadrivalent, preservative 7 completed Not Available [facility] 12/14/2022 02:54:15 pneumococcal polysaccharide PPV23 5 completed Not Available [facility] 12/14/2022 02:54:15 Influenza, split virus, trivalent, preservative 4 completed Not Available [facility] 12/14/2022 02:54:16 DTaP 2 completed Not Available [facility] 12/14/2022 02:54:16 zoster live 2 completed Not Available [facility] 12/14/2022 02:54:16 Influenza, high-dose, quadrivalent, PF 1 [...] SNOMED-CT Code Diagnosis ICD10 Code Diagnosis Note [id number] S_[facility] ic[facility] Irene [place] [address] [place] [address] 01/11/2021 00:00:00 01/12/2021 10:10:40 [id number] S_Histor ic_Gateway S_[facility]alle maya [address] [address] 01/27/2021 00:00:00 01/27/2021 09:04:03 [id number] Peter Lopez MD [facility] [place] [facility] , [place] [address] 02/03/2021 00:00:00 03/03/2021 16:39:32 [id number] Peter Lopez MD [facility] [place] [facility] , [place] [address] 02/10/2021 00:00:00 02/10/2021 09:37:05 [id number] S_[facility] ic_[facility] [place] [facility] , [place] [address] 02/18/2021 00:00:00 02/18/2021 12:50:54 [id number] Peter Lopez MD [facility] [place] [address] [place] [address] [place] [address] 03/24/2021 00:00:00 03/24/2021 09:33:12 [id number] Peter Lopez MD [facility] [place] [address] [place] [address] y , [place] [address] 04/22/2021 00:00:00 04/22/2021 10:11:30 [id number] Peter Lopez MD [facility] [place] [address] [place] [address] [place] [address] 04/26/2021 00:00:00 04/26/2021 16:23:23 [id number] Peter Lopez MD [facility] [place] [facility] [place] [address] 07/05/2021 00:00:00 07/05/2021 09:03:11 [id number] Peter Lopez MD [facility] [place] [address] , [place] [address] 07/07/2021 00:00:00 07/08/2021 08:10:03 [id number] Peter Lopez MD [facility] [place] [address] , [place] [address] 08/16/2021 00:00:00 08/16/2021 09:51:06 [id number] Peter Lopez MD [facility] [place] [address] , [place] [address] 09/13/2021 00:00:00 09/13/2021 11:08:58 [id number] Peter Lopez MD [facility] [place] [address] , [place] [address] 10/11/2021 00:00:00 10/11/2021 09:43:22 [id number] Peter Lopez MD [facility] [place] [address] , [place] [address] 01/03/2022 00:00:00 01/03/2022 09:15:48 [id number] Peter Lopez MD [facility] [place] [address] , [place] [address] 08/09/2022 00:00:00 08/09/2022 09:04:40 [id number] Yael Gillette NP [address] [address] [place] [address] 02/28/2023 08:02:02 02/28/2023 09:05:14 Allergic reaction to wasp sting [id number] T63.461A EpiPen Vitamin B1 2 deficiency (non anemic) 15280519 E53.8 B12 1,000 mcg monthly. Hasn't had in a while. Essential hypertension 34140494 I10 ASA 81 mg po daily.Losa rtan 25 mg po daily.Meto prolol Tartrate 50 mg po bid. Gastroesop hageal reflux disease 847283123 K21.9 Nexium 40 mg po daily. Needs to have PA.Has tried other meds before, but was several many years ago. Hyperlipidemia 28264905 E78.5 Simvastati n 20 mg po nightly. Osteopenia 354443995 M85 .80 Dexa 2020. Ordered 02/28/23. Vitamin D deficiency 347 06387 E55.9 vit d po daily. Constipation 52480206 K5 9.00 Diet mods. Plantar fasciitis 20280517 003 M72.2 Seeing Chiro. Herpes labialis 8025700 B00.1 valtrex 1 mg 2 tabs po bid for 1 day prn cold sore. Prediabetes 119192192 R7 3.03 Metformin ER 500 mg po daily. Seasonal a llergic rhinitis 112676511 J30.2 Montelukas t 10 mg po daily. Postmenopausal state 764 29247 Z78.0 Last in 2020. Screening for malignant neoplasm of colon 277741174 Z12.11 Unsure last time with Dr. Williamson. GI referral ordered. Health Concerns Section Related Observation LastModified by Organization Detai ls LastModified Time None Recorded Concern Status LastModified by Organization Details LastModified Time None Recorded Advance Directives Directive Y: Payers Insurance Date Sequence Insurance Name Policy Number Policy Joseph Covered Member ID Joseph Member ID Guarantor Name 03/01/2023 1 [place] Beatris Garcia [id number] Beatris Garcia 02/25/2023 2 [place] 111 Beatris Garcia [id number] Beatris Garcia Notes Date Note Type Note [...] scheduled for tomorrow. Yael Gillette NP [address] [facility], [facility] [address], [place], [address], [place] - [facility] 02/28/2023 09:02:32 OBGyn Episode No OBEpisode recorded.
--- OUTSIDE RECORDS SUMMARY | 2025-05-02 00:47 | XMS_ITS | Clinical Summary ---
Author Organization [facility] Address [address] [place] [address] Care Team Providers Care Innersole Maker Name Role Phone Anastasiya Tirado NP Primary [...] Comments Blood Pressure 177/62 11/26/2022 3:15 PM LINE MOVER Pulse 76 11/26/2022 3:15 PM LINE MOVER Temperature 36.7 C (98 F) 11/26/2022 3:15 PM LINE MOVER Respiratory Rate 20 11/26/2022 3:15 PM LINE MOVER Oxygen Saturation 97% 11/26/2022 3:15 PM LINE MOVER Inhaled Oxygen Concentration - - Weight 63.5 kg (140 lb) 11/26/2022 1:11 PM LINE MOVER Height 162.6 cm (5' 4) 11/26/2022 1:11 PM LINE MOVER Body Mass Index 24.03 11/26/2022 1:11 PM LINE MOVER Plan of Treatment Health Maintenance Due Date [...] age to complete this topic Insurance MEDICARE [facility] Care Teams Innersole Maker Relationship Specialty Start Date End Date Anastasiya Tirado NP [address] [place] [id number] PCP - General NURSE PRACTITIONER 11/26/22
--- OUTSIDE RECORDS SUMMARY | 2025-05-02 00:47 | XMS_ITS | Clinical Summary ---
Author Organization [facility] Address [address] [place] [address] Care Team Providers Care Credit Coordinator Name Role Phone None, Physician Primary Care Provider Unavailabl e Source Comments [facility],non-owned Affiliates and Associated Physician Practices is amultiple site organization consisting of ambulatory clinics and hospital sitesin [place], [place], [place] and [place]. This disclosure is being madepursuant to the Care Everywhere program and may not contain all information available regarding this patient. 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
[2025-05-02 10:58] VITALS: BP 148/92; PULSE 70; RESP 14; TEMP 36.8; O2SAT 100; BMI 24.7
--- NOTE | 2025-05-02 11:26 | WPDANESEPPF ---
Anes - Initial Pre Proc Eval Procedure: Operation Date: 05/02/25 12:30 Proposed Procedures p Colonoscopy - Phi Vizcarra MD Date/Time: 05/02/25 11:26 Surgeon: Phi Vizcarra MD Pre Op Diagnosis: Other fecal abnormalities Patient Data Age: 74 Gender: F Height: 1.6 m Weight: 63.2 kg Last Vital Signs Temp 36.8 C 05/02/25 10:58 Pulse 70 05/02/25 10:58 Resp 14 05/02/25 10:58 BP 148/92 H 05/02/25 10:58 Pulse Ox 100 05/02/25 10:58 O2 Del Method Room Air 05/02/25 10:58 Allergies Allergy/AdvReac Type Severity Reaction Status Date / Time Penicillins Allergy Mild Rash Verified 05/02/25 11:04 amoxicillin Allergy Unknown Unknown Verified 05/02/25 11:04 venom-wasp Allergy Unknown Unknown Verified 05/02/25 11:04 Home Medications ?Medication ?Instructions ?Recorded ?Confirmed ?Type D3 25 mcg PO DAILY 01/09/24 05/02/25 History multivitamin (Daily Multi-Vitamin 1 tablet PO DAILY 01/09/24 05/02/25 History tablet) losartan 25 mg tablet 25 mg PO DAILY #90 tabs 11/05/24 05/02/25 Rx simvastatin 20 mg tablet 20 mg PO DAILY #90 tabs 11/05/24 05/02/25 Rx esomeprazole magnesium 40 mg 40 mg PO DAILY #90 caps 01/06/25 05/02/25 Rx capsule,delayed release sodium sul 1.479 gram-potas ch See Rx Instructions PO PER PKG DIR 02/05/25 05/02/25 Rx 0.188 gram-magnes sul 0.225 gram #24 tabs tablet (Sutab) metoprolol tartrate 50 mg tablet 50 mg PO BID #180 tabs 02/25/25 05/02/25 Rx montelukast 10 mg tablet 10 mg PO DAILY #90 tabs 02/25/25 05/02/25 Rx Patient hx anesthesia problems: none Family hx anesthesia problems: none Results Review: All pre-operative results and documents have been reviewed as part of the pre-operative evaluation. [facility] Past Medical History Medical History (Updated 05/02/25 @ 09:03 by Lauri Hope DO) Bradycardia Hyperlipemia Hypertension Osteoporosis Cancer Anemia, unspecified Family History Family History Father Hypertension Heart disease Mother Hypertension Depression Heart disease Cerebrovascular accident Disorder of thyroid Sibling Cancer Disorder of thyroid Grandparent History of ETOH abuse Diabetes mellitus Depression Heart disease Grandparent History of ETOH abuse Cancer Heart disease Other Family history of cardiovascular disease Family history of glaucoma Family history of hypercholesterolemia Malignant neoplasm of prostate Social History Social History Smoking status: Never smoker Alcohol intake: never Substance use: never Substance use type: does not use Lack of Transportation: No Lack of Food: Never True Current Housing: I Have Housing Concerned About Future Housing: No Difficulty Paying Gas/Electric Bills: No Difficulty Paying for Meds: No Currently Unemployed: No Education: High School Diploma/GED Difficulty w/ Childcare or Family Care: No Living arrangements: with family Occupation/Education: retired Gender identity (if verbalized by the patient): Female Spiritual care concerns: No Agree to blood products: Yes Anes - Eval Final PreProcedure Day of Procedure 05/02/25 11:26 Patient weight: normal Heart: regular rate and rhythm Lungs: clear to auscultation and normal air movement Airway: Mallampati scale class II Neurological: alert and oriented Last oral intake: >/= 8 hours ASA classification: II Emergent: no Anesthetic plan: proceed Anesthesia type and monitoring: general GIVS and standard monitoring Results Review: All pre-operative results and documents have been reviewed as part of the pre-operative evaluation. Informed Consent: The patient's anesthetic plan and its attendant risks and benefits were discussed with the patient/family/POA. Questions were solicited and answers provided to the satisfaction of the patient/family/POA.
--- NOTE | 2025-05-02 11:34 | PM.IMHP ---
H&P: HPI History of Present Illness Date/Time: 05/02/25 11:34 Chief Complaint: Screening colonoscopy Narrative: This is the patient's 2nd colonoscopy. There are no GI symptoms and there is no family history of colorectal cancer. Review of Systems Review of Systems: All systems reviewed & are unremarkable except as noted in HPI and below PMFSH Past Medical History Medical History (Updated 05/02/25 @ 11:35 by Phi Vizcarra MD) Bradycardia Hyperlipemia Hypertension Osteoporosis Cancer Anemia, unspecified Family History Family History Father Hypertension Heart disease Mother Hypertension Depression Heart disease Cerebrovascular accident Disorder of thyroid Sibling Cancer Disorder of thyroid Grandparent History of ETOH abuse Diabetes mellitus Depression Heart disease Grandparent History of ETOH abuse Cancer Heart disease Other Family history of cardiovascular disease Family history of glaucoma Family history of hypercholesterolemia Malignant neoplasm of prostate Social History Social History Smoking status: Never smoker Alcohol intake: never Substance use: never Substance use type: does not use Lack of Transportation: No Lack of Food: Never True Current Housing: I Have Housing Concerned About Future Housing: No Difficulty Paying Gas/Electric Bills: No Difficulty Paying for Meds: No Currently Unemployed: No Education: High School Diploma/GED Difficulty w/ Childcare or Family Care: No Living arrangements: with family Occupation/Education: retired Gender identity (if verbalized by the patient): Female Spiritual care concerns: No Agree to blood products: Yes Meds Home Medications and Allergies Home Medications ?Medication ?Instructions ?Recorded ?Confirmed ?Type D3 25 mcg PO DAILY 01/09/24 05/02/25 History multivitamin (Daily Multi-Vitamin 1 tablet PO DAILY 01/09/24 05/02/25 History tablet) losartan 25 mg tablet 25 mg PO DAILY #90 tabs 11/05/24 05/02/25 Rx simvastatin 20 mg tablet 20 mg PO DAILY #90 tabs 11/05/24 05/02/25 Rx esomeprazole magnesium 40 mg 40 mg PO DAILY #90 caps 01/06/25 05/02/25 Rx capsule,delayed release sodium sul 1.479 gram-potas ch See Rx Instructions PO PER PKG DIR 02/05/25 05/02/25 Rx 0.188 gram-magnes sul 0.225 gram #24 tabs tablet (Sutab) metoprolol tartrate 50 mg tablet 50 mg PO BID #180 tabs 02/25/25 05/02/25 Rx montelukast 10 mg tablet 10 mg PO DAILY #90 tabs 02/25/25 05/02/25 Rx Allergies Allergy/AdvReac Type Severity Reaction Status Date / Time Penicillins Allergy Mild Rash Verified 05/02/25 11:04 amoxicillin Allergy Unknown Unknown Verified 05/02/25 11:04 venom-wasp Allergy Unknown Unknown Verified 05/02/25 11:04 Vital Signs Vital Signs - 24 hr 05/02/25 10:58 Temperature 98.2 F Pulse Rate 70 Respiratory Rate 14 Blood Pressure 148/92 H Pulse Oximetry 100 Oxygen Delivery Room Air Exam Const: General: cooperative and healthy appearing Resp: Effort & Inspection: normal respiratory effort and able to speak in complete sentences Auscultation: clear to auscultation bilaterally Cardio: Rate: regular rate Rhythm: regular rhythm GI: Inspection: normal to inspection GI Palp: No No hepatosplenomegaly present Auscultation: normal bowel sounds Rectal Exam: deferred Skin: General skin exam: normal color Psych: Appearance: grossly normal Mental Status: mental status grossly normal Assessment and Plan Assessment and plan (1) Encounter for screening colonoscopy: Code(s): Z12.11 - Encounter for screening for malignant neoplasm of colon Status: Acute Assessment and Plan: The patient is deemed a good candidate for the procedure. Consent signed. Will proceed.
[2025-05-02] MEDS: LACTATED RINGERS 1,000 ML 150 ML IV CONT (12:12)
[2025-05-02 12:35] VITALS: BP 133/71; PULSE 67; RESP 20; O2SAT 100
[2025-05-02 12:45] VITALS: BP 158/92; PULSE 65; RESP 20; O2SAT 100
[2025-05-02 12:52] VITALS: BP 184/80; PULSE 54; RESP 19; O2SAT 100
--- NOTE | 2025-05-02 12:57 | SUR.PHASEII ---
Patient's last blood pressure was 184/80. I notified Dr. Hope. Patient states she has not had her blood pressure medications. Dr. Hope is okay with discharge and I instructed patient to take her blood pressure medication at home.
== END 2025-05-02 13:08 | disposition home or self-care (01) ==
PROVIDERS: PCP Nurse Practitioner Adult Health; Referring Provider Nurse Practitioner Adult Health; Visit Provider Internal Medicine Gastroenterology
PROC: 0DJD8ZZ Inspection of Lower Intestinal Tract, Via Natural or Artificial Opening Endoscopic (ICD-10-PCS; CPT 45378; principal; 2025-05-02 12:30)
DX: Z12.11 Encounter for screening for malignant neoplasm of colon (principal); K57.30 Diverticulosis of large intestine without perforation or abscess without bleeding; K64.8 Other hemorrhoids
CPT/HCPCS: G0121; J2003; J2704; J7120

== ENCOUNTER 2025-05-09 07:35 | Outpatient (CLI) | payer MEDICARE, BC, SELFPAY ==
--- NOTE | ~2025-05-09 | MM_ITS ---
EXAMINATION: MM screening cari BI w edmund HISTORY: Screening TECHNIQUE: Craniocaudal and mediolateral oblique 3-D tomosynthesis images were obtained and synthetic 2-D images were generated. CAD analysis was submitted and interpreted. COMPARISON: Comparison to multiple prior studies sequentially, with oldest reviewed study dated 09/16. BREAST PARENCHYMAL COMPOSITION: Not dense: There are scattered areas of fibroglandular density. FINDINGS: There is no evidence of suspicious mass, calcification, or architectural distortion to sugg est malignancy in either breast. There has been no suspicious interval change. IMPRESSION: 1. No mammographic evidence of malignancy. 2. Recommend routine screening mammography in one year. BI-RADS Category 1: Negative Reviewed, dictated and finalized at location A.
--- OUTSIDE RECORDS SUMMARY | 2025-05-09 07:38 | XMS_ITS | Clinical Summary ---
Author Organization [facility] Address [address] [facility] [place] [address] Care Team Providers Care Land Examiner Name Role Phone None, Physician Primary Care Provider Unavailabl e Source Comments [facility],non-owned Affiliates and Associated Physician Practices is amultiple site organization consisting of ambulatory clinics and hospital sitesin [place], [place] and [place]. This disclosure is being madepursuant to the Care Everywhere program and may not contain all information available regarding this patient. 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
--- OUTSIDE RECORDS SUMMARY | 2025-05-09 07:38 | XMS_ITS | Clinical Summary ---
Author Organization [facility] Address [address] [place] [address] Care Team Providers Care [employer] Worker Name Role Phone Anastasiya Tirado NP Primary Care Provider [phone] Allergies No known active allergies Medications No [...] Comments Blood Pressure 177/62 11/26/2022 3:15 PM INTERACTIVE PRODUCER Pulse 76 11/26/2022 3:15 PM INTERACTIVE PRODUCER Temperature 36.7 C (98 F) 11/26/2022 3:15 PM INTERACTIVE PRODUCER Respiratory Rate 20 11/26/2022 3:15 PM INTERACTIVE PRODUCER Oxygen Saturation 97% 11/26/2022 3:15 PM INTERACTIVE PRODUCER Inhaled Oxygen Concentration - - Weight 63.5 kg (140 lb) 11/26/2022 1:11 PM INTERACTIVE PRODUCER Height 162.6 cm (5' 4) 11/26/2022 1:11 PM INTERACTIVE PRODUCER Body Mass Index 24.03 11/26/2022 1:11 PM INTERACTIVE PRODUCER Plan of Treatment Health Maintenance Due Date [...] age to complete this topic Insurance MEDICARE [facility] Care Teams [employer] Worker Relationship Specialty Start Date End Date Anastasiya Tirado NP [address] [place] [id number] PCP - General NURSE PRACTITIONER 11/26/22
--- OUTSIDE RECORDS SUMMARY | 2025-05-09 07:38 | XMS_ITS | Data Portability ---
Author Organization [facility] [place], Main Office Address [address] [place] [address] Assessment Encounter Date Assessment Date Assessment LastModified by Organization Details LastModified Time 02/28/2023 02/28/2023 Mammogram scheduled for 03/01/23. Colonoscopy- Hysterectomy. Not available 02/28/2023 08:46:54 Plan of Treatment Reminders Order Date Submit Date Provider Last Modified By Organization Details Last Modified Time Details Appointments None recorded. Lab BMP, serum or plasma 2022 023 [facility] (Lab), [address] [place], [address], 3 14:47:42 glycohemogl obin, total, blood 2022 023 [facility] (Lab), [address] [place], [address], 3 14:59:06 lipid panel, serum 2022 023 [facility] (Lab), [address] [place], [address], 3 14:47:39 vitamin B12 + folate, serum or blood [address] [facility] [facility] [address] [place], [address], 3 08:46:46 Referral gastroenter ologist referral - screening colonoscopy . Pt unsure last. (New patient to our office today) 2022 023 [email or web address] Jagdeep Venegas MD, [address], [place], [address], 18:10:38 Procedures None recorded. Surgeries None recorded. Imaging bone density - last in 2020. 2022 023 [facility], [address], [address], [place], [address], 09:05:00 Medication Orders valacyclovi r 1 gram tablet 2022 023 DANISH [facility], [facility], [place], [address], 08:53:27 esomeprazol e magnesium 40 mg capsule,del ayed release 2022 023 [email or web address] [facility], [facility], [place], [address], 3 07:55:22 EpiPen 2-Miquel 0.3 mg/0.3 mL injection, auto-inject or 2022 023 [email or web address] [facility], [place], [address], 3 07:46:56 Patient TargetsNo targets recorded. 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 Pt unsure last. (New patient to our office today) Referring Physician: Yael Gillette, Family Medicine, Encounter Date: 02/28/2023 Results Created Date Observation Date Name Description Value Unit Range Abnormal Flag Note LastModifiedBy Organization Detail LastModifiedTime 01/04/20 22 01/03/2022 FOLAT E, SERUM /PLAS MA folate 12.7 NG/mL 2.76- Not Available [facility] (Lab) [address] [place], [address], 01/03/2022 15:24:09 01/04/20 22 01/03/2022 VITAM IN B12 (ELAINA OLMAN ) vb12 >1000 pg/mL 239-93 1 high Not Available [facility] (Lab) [address] [place], [address], 01/03/2022 15:24:07 01/04/20 22 01/03/2022 BASIC METAB OLIC PANEL sodium 137 mmol/ L 137-14 5 Not Available [facility] (Lab) [address] [place], [address], 01/03/2022 14:40:52 01/04/20 22 01/03/2022 BASIC METAB OLIC PANEL potassium 4.5 mmol/ L 3.5-5. 1 Not Available [facility] (Lab) [address] [place], [address], 01/03/2022 14:40:52 01/04/20 22 01/03/2022 BASIC METAB OLIC PANEL chloride 103 mmol/ L 98-107 Not Available [facility] (Lab) [address] [place], [address], 01/03/2022 14:40:52 01/04/20 22 01/03/2022 BASIC METAB OLIC PANEL carbon dioxide 29 mmol/ L 22-30 Not Available [facility] (Lab) [address] [place], [address], 01/03/2022 14:40:52 01/04/20 22 01/03/2022 BASIC METAB OLIC PANEL agap 9.5 mmol/ L 14-22 low Not Available [facility] (Lab) [address] [place], [address], 01/03/2022 14:40:52 01/04/20 22 01/03/2022 BASIC METAB OLIC PANEL glucose 119 mg/dL 70-99 high Not Available [facility] (Lab) [address] [place], [address], 01/03/2022 14:40:52 01/04/20 22 01/03/2022 BASIC METAB OLIC PANEL BUN 16 mg/dL 8-19 Not Available [facility] (Lab) [address] [place], [address], 01/03/2022 14:40:52 01/04/20 22 01/03/2022 BASIC METAB OLIC PANEL creatinine 0.71 mg/dL 0.66-1 .25 Not Available [facility] (Lab) [address] [place], [address], 01/03/2022 14:40:52 01/04/20 22 01/03/2022 BASIC METAB OLIC PANEL GFR >60 Refer ence Range : [place] ge GFR Healt hy Adult : >60 [...] calcu lator is avail able on the [facility] websi te: https ://lang montero.o mirtha/pr ofess ional s/kdo qi/gf r_cal culat or Not Available [facility] (Lab) [address] [place], [address], 01/03/2022 14:40:52 01/04/20 22 01/03/2022 BASIC METAB OLIC PANEL calcium 10.1 mg/dL 8.4-10 .2 Not Available [facility] (Lab) [address] [place], [address], 01/03/2022 14:40:52 01/04/20 22 01/03/2022 LIPID PANEL cholesterol 198 mg/dL 140-19 9 NIH CAROL NSUS RECOM MENDA TION FOR VIVIENNE STERO L: ADULT CHILD LOW RISK: <200 <170 BORDE RLINE : <200- 239 ----- HIGH RISK: >240 >200 Not Available [facility] (Lab) [address] [place], [address], 01/03/2022 14:40:44 01/04/20 22 01/03/2022 LIPID PANEL triglyceride s 145 mg/dL 0-150 NIH CAROL NSUS REPOR T RECOM MENDA TION FOR TRIGL YCERI SONNY: ADULT CHILD LOW RISK: <150 ----- BODER LINE: 150-1 99 ----- HIGH RISK: >200 ----- Not Available [facility] (Lab) [address] [place], [address], 01/03/2022 14:40:44 01/04/20 22 01/03/2022 LIPID PANEL HDL cholesterol 52 mg/dL 40- Not Available [facility] (Lab) [address] [place], [address], 01/03/2022 14:40:44 01/04/20 22 01/03/2022 LIPID PANEL [...] WILL NOT BE REPOR AUDREY. Not Available [facility] (Lab) [address] [place], [address], 01/03/2022 14:40:44 01/04/20 22 01/03/2022 HEPAT IC/LI ALINA PANEL biliurubin,u ncong. (indirect) 0.60 mg/dL 0.00-1 .1 Not Available [facility] (Lab) [address] [place], [address], 01/03/2022 14:40:42 01/04/20 22 01/03/2022 HEPAT IC/LI ALINA PANEL alkaline phosphatase 65 U/L 38-126 Not Available [facility] (Lab) [address] [place], [address], 01/03/2022 14:40:42 01/04/20 22 01/03/2022 HEPAT IC/LI ALINA PANEL alanine aminotransfe rase 16 U/L 0-35 Not Available [facility] (Lab) [address] [place], [address], 01/03/2022 14:40:42 01/04/20 22 01/03/2022 HEPAT IC/LI ALINA PANEL aspartate aminotransfe rase 22 U/L 15-37 Not Available [facility] (Lab) [address] [place], [address], 01/03/2022 14:40:42 01/04/20 22 01/03/2022 HEPAT IC/LI ALINA PANEL bilirubin, total 0.40 mg/dL 0.20-1 .30 Not Available [facility] (Lab) [address] [place], [address], 01/03/2022 14:40:42 01/04/20 22 01/03/2022 HEPAT IC/LI ALINA PANEL bilirubin, conjugated (direct) 0.00 mg/dL 0.00-0 .30 Not Available [facility] (Lab) [address] [place], [address], 01/03/2022 14:40:42 01/04/20 22 01/03/2022 HEPAT IC/LI ALINA PANEL total protein 7.1 g/dL 6.3-8. 2 Not Available [facility] (Lab) [address] [place], [address], 01/03/2022 14:40:42 01/04/20 22 01/03/2022 HEPAT IC/LI ALINA PANEL albumin 4.6 g/dL 3.0-4. 4 high Not Available [facility] (Lab) [address] [place], [address], 01/03/2022 14:40:42 01/04/20 22 01/03/2022 HEPAT IC/LI ALINA PANEL globulin 2.5 g/dL 2.6-4. 2 low Not Available [facility] (Lab) [address] [place], [address], 01/03/2022 14:40:42 01/04/20 22 01/03/2022 HEPAT IC/LI ALINA PANEL A/G ratio 1.8 ratio 1.0-2. 0 Not Available [facility] (Lab) [address] [place], [address], 01/03/2022 14:40:42 01/04/20 22 01/03/2022 VITAM IN D 25-HY DROXY vd25oh 58.9 NG/mL 30-100 Vitam in D Statu s: Defic ient: <20 ng/mL Insuf ficie nt: 20-29 ng/mL Suffi cient : 30-10 0 ng/mL Not Available [facility] (Lab) [address] [place], [address], 01/03/2022 14:40:09 01/04/20 22 01/03/2022 HEMOG LOBIN A1C HA1C 6.1 % 4.0-6. 0 high Diabe joyce Scree dakota Crite lyudmila: <5.7% Consi stent with absen ce of diabe joyce 5.7-6 .4% Consi stent with incre ased risk for diabe joyce (pred iabet es) >OR=6 .5% Consi stent with diabe joyce REFER ENCE: Diabe joyce Care (Barros ppl.1 ):s13 -s22 Not Available [facility] (Lab) [address] [place], [address], 01/03/2022 13:16:37 08/09/20 22 08/10/2022 HEMOG LOBIN A1C HA1C 6.0 % 4.0-6. 0 Diabe joyce Scree dakota Crite lyudmila: <5.7% Consi stent with absen ce of diabe joyce 5.7-6 .4% Consi stent with incre ased risk for diabe joyce (pred iabet es) >OR=6 .5% Consi stent with diabe joyce REFER ENCE: Diabe joyce Care (Barros ppl.1 ):s13 -s22 Not Available [facility] (Lab) [address] [place], [address], 08/10/2022 15:12:23 08/09/2008/09/2022 FOLAT E, SERUM /PLAS MA folate 8.83 NG/mL 2.76-2 0.0 Not Available [facility] (Lab) [address] [place], [address], 08/09/2022 15:07:59 08/09/20 22 08/09/2022 VITAM IN B12 (ELAINA OLMAN ) vb12 >1000 pg/mL 239-93 1 high Not Available [facility] (Lab) [address] [place], [address], 08/09/2022 15:07:55 08/09/20 22 08/09/2022 VITAM IN D 25-HY DROXY vd25oh 51.1 NG/mL 30-100 Vitam in D Statu s: Defic ient: <20 ng/mL Insuf ficie nt: 20-29 ng/mL Suffi cient : 30-10 0 ng/mL Not Available [facility] (Lab) [address] [place], [address], 08/09/2022 14:21:59 08/09/20 22 08/09/2022 BASIC METAB OLIC PANEL sodium 137 mmol/ L 137-14 5 Not Available [facility] (Lab) [address] [place], [address], 08/09/2022 14:10:02 08/09/20 22 08/09/2022 BASIC METAB OLIC PANEL potassium 5.3 mmol/ L 3.5-5. 1 high Not Available [facility] (Lab) [address] [place], [address], 08/09/2022 14:10:02 08/09/20 22 08/09/2022 BASIC METAB OLIC PANEL chloride 106 mmol/ L 98-107 Not Available [facility] (Lab) [address] [place], [address], 08/09/2022 14:10:02 08/09/20 22 08/09/2022 BASIC METAB OLIC PANEL carbon dioxide 27 mmol/ L 22-30 Not Available [facility] (Lab) [address] [place], [address], 08/09/2022 14:10:02 08/09/20 22 08/09/2022 BASIC METAB OLIC PANEL anion gap 9.3 mmol/ L 14-22 low Not Available [facility] (Lab) [address] [place], [address], 08/09/2022 14:10:02 08/09/20 22 08/09/2022 BASIC METAB OLIC PANEL glucose 118 mg/dL 70-99 high Not Available [facility] (Lab) [address] [place], [address], 08/09/2022 14:10:02 08/09/20 22 08/09/2022 BASIC METAB OLIC PANEL BUN 15 mg/dL 8-19 Not Available [facility] (Lab) [address] [place], [address], 08/09/2022 14:10:02 08/09/20 22 08/09/2022 BASIC METAB OLIC PANEL creatinine 0.79 mg/dL 0.66-1 .25 Not Available [facility] (Lab) [address] [place], [address], 08/09/2022 14:10:02 08/09/20 22 08/09/2022 BASIC METAB OLIC PANEL GFR >60 Refer ence Range : [place] ge GFR Healt hy Adult : >60 [...] serum creat inine relat ed to nutri meo l statu s or medic ation usage . For perso ns <18 years of age, a pedia tric GFR calcu latarnold is avail able on the [facility] websi te: https ://lang perdomo.renetta montero.o mirtha/pr ofess ional s/kdo qi/gf r_cal culat or Not Available [facility] (Lab) [address] [place], [address], 08/09/2022 14:10:02 08/09/20 22 08/09/2022 BASIC METAB OLIC PANEL calcium 9.9 mg/dL 8.4-10 .2 Not Available [facility] (Lab) [address] [place], [address], 08/09/2022 14:10:02 08/09/20 22 08/09/2022 LIPID PANEL cholesterol 196 mg/dL 140-19 9 NIH CAROL NSUS RECOM MENDA TION FOR VIVIENNE STERO L: ADULT CHILD LOW RISK: <200 <170 BORDE RLINE : <200- 239 ----- HIGH RISK: >240 >200 Not Available [facility] (Lab) [address] [place], [address], 08/09/2022 14:09:52 08/09/20 22 08/09/2022 LIPID PANEL triglyceride s 183 mg/dL 0-150 high NIH CAROL NSUS REPOR T RECOM MENDA TION FOR TRIGL YCERI SONNY: ADULT CHILD LOW RISK: <150 ----- BODER LINE: 150-1 99 ----- HIGH RISK: >200 ----- Not Available [facility] (Lab) [address] [place], [address], 08/09/2022 14:09:52 08/09/20 22 08/09/2022 LIPID PANEL HDL cholesterol 45 mg/dL 40- Not Available [facility] (Lab) [address] [place], [address], 08/09/2022 14:09:52 08/09/20 22 08/09/2022 LIPID PANEL [...] WILL NOT BE REPOR AUDREY. Not Available [facility] (Lab) [address] [place], [address], 08/09/2022 14:09:52 08/09/2008/09/2022 HEPAT IC/LI ALINA PANEL biliurubin,u ncong. (indirect) 0.40 mg/dL 0.00-1 .1 Not Available [facility] (Lab) [address] [place], [address], 08/09/2022 14:09:40 08/09/20 22 08/09/2022 HEPAT IC/LI ALINA PANEL alkaline phosphatase 78 U/L 38-126 Not Available [facility] (Lab) [address] [place], [address], 08/09/2022 14:09:40 08/09/20 22 08/09/2022 HEPAT IC/LI ALINA PANEL alanine aminotransfe rase 15 U/L 0-35 Not Available [facility] (Lab) [address] [place], [address], 08/09/2022 14:09:40 08/09/20 22 08/09/2022 HEPAT IC/LI ALINA PANEL aspartate aminotransfe rase 22 U/L 15-37 Not Available [facility] (Lab) [address] [place], [address], 08/09/2022 14:09:40 08/09/20 22 08/09/2022 HEPAT IC/LI ALINA PANEL bilirubin, total 0.40 mg/dL 0.20-1 .30 Not Available [facility] (Lab) [address] [place], [address], 08/09/2022 14:09:40 08/09/20 22 08/09/2022 HEPAT IC/LI ALINA PANEL bilirubin, conjugated (direct) 0.00 mg/dL 0.00-0 .30 Not Available [facility] (Lab) [address] [place], [address], 08/09/2022 14:09:40 08/09/2008/09/2022 HEPAT IC/LI ALINA PANEL total protein 6.7 g/dL 6.3-8. 2 Not Available [facility] (Lab) [address] [place], [address], 08/09/2022 14:09:40 08/09/20 22 08/09/2022 HEPAT IC/LI ALINA PANEL albumin 4.4 g/dL 3.0-4. 4 Not Available [facility] (Lab) [address] [place], [address], 08/09/2022 14:09:40 08/09/20 22 08/09/2022 HEPAT IC/LI ALINA PANEL globulin 2.3 g/dL 2.6-4. 2 low Not Available [facility] (Lab) [address] [place], [address], 08/09/2022 14:09:40 08/09/20 22 08/09/2022 HEPAT IC/LI ALINA PANEL A/G ratio 1.9 ratio 1.0-2. 0 Not Available [facility] (Lab) [address] [place], [address], 08/09/2022 14:09:40 02/29/20 23 02/28/2023 LIPID PANEL cholesterol 192 mg/dL 140-19 9 NIH CAROL NSUS RECOM MENDA TION FOR VIVIENNE STERO L: ADULT CHILD LOW RISK: <200 <170 BORDE RLINE : <200- 239 ----- HIGH RISK: >240 >200 Not Available [facility] (Lab) [address] [place], [address], 02/28/2023 14:47:39 02/29/20 23 02/28/2023 LIPID PANEL triglyceride s 175 mg/dL 0-150 high NIH CAROL NSUS REPOR T RECOM MENDA TION FOR TRIGL YCERI SONNY: ADULT CHILD LOW RISK: <150 ----- BODER LINE: 150-1 99 ----- HIGH RISK: >200 ----- Not Available [facility] (Lab) [address] [place], [address], 02/28/2023 14:47:39 02/29/20 23 02/28/2023 LIPID PANEL HDL cholesterol 49 mg/dL 40- Not Available [facility] (Lab) [address] [place], [address], 02/28/2023 14:47:39 02/29/20 23 02/28/2023 LIPID PANEL [...] WILL NOT BE REPOR AUDREY. Not Available [facility] (Lab) [address] [place], [address], 02/28/2023 14:47:39 02/29/20 23 02/28/2023 BASIC METAB OLIC PANEL sodium 137 mmol/ L 137-14 5 Not Available [facility] (Lab) [address] [place], [address], 02/28/2023 14:47:42 02/29/20 23 02/28/2023 BASIC METAB OLIC PANEL potassium 4.9 mmol/ L 3.5-5. 1 Not Available [facility] (Lab) [address] [place], [address], 02/28/2023 14:47:42 02/29/20 23 02/28/2023 BASIC METAB OLIC PANEL chloride 103 mmol/ L 98-107 Not Available [facility] (Lab) [address] [place], [address], 02/28/2023 14:47:42 02/29/20 23 02/28/2023 BASIC METAB OLIC PANEL carbon dioxide 27 mmol/ L 22-30 Not Available [facility] (Lab) [address] [place], [address], 02/28/2023 14:47:42 02/29/20 23 02/28/2023 BASIC METAB OLIC PANEL anion gap 11.9 mmol/ L 14-22 low Not Available [facility] (Lab) [address] [place], [address], 02/28/2023 14:47:42 02/29/20 23 02/28/2023 BASIC METAB OLIC PANEL glucose 125 mg/dL 70-99 high Not Available [facility] (Lab) [address] [place], [address], 02/28/2023 14:47:42 02/29/20 23 02/28/2023 BASIC METAB OLIC PANEL BUN 12 mg/dL 8-19 Not Available [facility] (Lab) [address] [place], [address], 02/28/2023 14:47:42 02/29/20 23 02/28/2023 BASIC METAB OLIC PANEL creatinine 0.77 mg/dL 0.66-1 .25 Not Available [facility] (Lab) [address] [place], [address], 02/28/2023 14:47:42 02/29/20 23 02/28/2023 BASIC METAB OLIC PANEL GFR >60 Refer ence Range : [place] ge GFR Healt hy Adult : >60 [...] calcu lator is avail able on the [facility] websi te: https ://lang perdomo.renetta montero.o rg/pr khadra wangal s/kdo qi/gf r_cal culat or Not Available [facility] (Lab) [address] [place], [address], 02/28/2023 14:47:42 02/29/2002/28/2023 BASIC METAB OLIC PANEL calcium 9.9 mg/dL 8.4-10 .2 Not Available [facility] (Lab) [address] [place], [address], 02/28/2023 14:47:42 02/29/20 23 02/28/2023 HEMOG LOBIN A1C HA1C 5.9 % 4.0-6. 0 Diabe joyce Scree dakota Crite lyudmila: <5.7% Consi stent with absen ce of diabe joyce 5.7-6 .4% Consi stent with incre ased risk for diabe joyce (pred iabet es) >OR=6 .5% Consi stent with diabe joyce REFER ENCE: Diabe joyce Care 2015, 39(Barros ppl.1 ):s13 -s22 Not Available [facility] (Lab) [address] [place], [address], 02/28/2023 14:59:06 02/29/20 23 02/28/2023 VITAM IN B12 (ELAINA OLMAN ) vb12 903 pg/mL 239-93 1 Not Available [facility] (Lab) [address] [place], [address], 02/28/2023 15:49:50 02/29/20 23 02/28/2023 FOLAT E, SERUM /PLAS MA folate 11.7 NG/mL 2.76-2 0.0 Not Available [facility] (Lab) [address] [place], [address], 02/28/2023 15:49:53 12/31/19 22 12/30/2021 MAMMO , scree dakota, bilat eral No observ ation record ed. [id number], [address], 12/14/2022 02:55:12 08/31/20 22 08/31/2022 tom can cardi olite stres s test (PROC ) No observ ation record ed. [id number] [address], [address], 12/14/2022 02:55:12 08/31/20 22 08/31/2022 tom can cardi olite stres s test (PROC ) No observ ation record ed. [id number], [address], 12/14/2022 02:55:12 11/08/31/2022 [employer] can cardi olite stres s test (PROC ) No observ ation record ed. [id number] [facility] [address], [place], [address], 12/14/2022 02:55:12 03/01/20 23 03/01/2023 MAMMO , scree dakota, digit al, bilat eral No observ ation record ed. [email or web address] [facility] [address] [facility] [address], [place], [address], 03/02/2023 09:11:43 03/01/20 23 03/01/2023 MAMMO , scree dakota, bilat eral No observ ation record ed. [email or web address] [facility] [address] [facility] [address], [place], [address], 03/02/2023 12:33:11 Result Notes None recorded. Problems Name Problem SNOMED Code Status Onset Date Resolution Date Notes Provider Name and Address Organization Details Recorded Time Disorder of knee 997945367 Active Not Available [employer] 3 02:44:44 Hyperchol esterolem ia 07523198 Active Not Available [employer] 3 02:44:44 Constipat ion 67246616 Active Not Available [employer] 3 02:44:44 Plantar fasciitis 120464096 Active Not Available [employer] 3 02:44:44 Gastroeso phageal reflux disease 361007007 Active Not Available [employer] 3 02:44:44 Dyspnea 265530220 Completed Not Available [employer] 3 02:44:44 Osteopeni a 218785536 Active Not Available [employer] 3 02:44:45 Vitamin D deficienc y 75172563 Active Not Available [employer] 3 02:44:45 Hypertens amy disorder 33853554 Active Not Available [employer] 3 02:44:45 Hyperlipi demia 33486034 Active Not Available [employer] 3 02:44:45 Essential hypertens ion 26747199 Active Not Available [employer] 3 02:44:45 Hyperglyc emia 26959618 Active Not Available [facility] 3 02:44:46 Influenza caused by Influenza A virus 492345837 Completed 201602/21/2017 Not Available [facility] 3 02:44:45 Disorder of vitamin B12 142770453 Active 2019 Not Available [facility] 3 02:44:45 Plantar fasciitis of right foot 51572100636 554170 Active 2020 Not Available [facility] 3 02:44:44 Tibialis posterior tendiniti s 343355059 Active 2020 Not Available [facility] 3 02:44:44 Prediabet es 200024241 Active 2021 Not Available [facility] 3 02:44:45 Allergic reaction to wasp sting 632598671 Active 2022 Yael Gillette NP [address], [place], [address] , [facility] [employer] [facility] [email or web address] [facility] 3 08:37:08 Vitamin B12 deficienc y (non anemic) 99098778 Active 2022 Yael Gillette NP [address], [place], [address] , [facility] [employer] [facility] [email or web address] [facility] 3 08:38:16 Herpes labialis 8978353 Active 2022 Yael Gillette NP [address], [place], [address] , [facility] [employer] [facility] [email or web address] [facility] 3 08:43:05 Seasonal allergic rhinitis 098304676 Active 2022 Yael Gillette NP [address], [place], [address] , [facility] [employer] [facility] [email or web address] [facility] 3 08:44:56 Problem Notes None recorded. Procedures Surgical History Date Name Laterality Status Provider Name and Address Organization Details Recorded Time 10/16/18 99 lumpectomy of right breast completed Yael Zavaleta RN [facility] 02/28/2023 08:21:25 10/16/18 99 lumpectomy of right breast completed Yael Zavaleta RN [facility] 02/28/2023 08:21:45 10/16/18 88 hysterectomy completed Yael Zavaleta RN [facility] 02/28/2023 08:21:56 Imaging Results None recorded. Procedure [...] and swoll en Yael Gillette, FANTA [address] [facility] [address], [place], [address] [place] [address] 08:36:12 Medications Name Sig Start Date Stop [...] Not Available No t Available Fluad Quad 7821-1667(6 5yr up)(PF) 60 mcg (15 mcg x [...] % 99 % 64 /min 97 [degF] 59280.9 3 g 142/76 mm[Hg] Not Available [facility] 3 02:42:36 Date Recorded Body height Body mass index (BMI) Body weight Body temperature Heart rate Respiratory rate Oxygen saturation Oxygen saturation in Arterial blood by Pulse oximetry Pain severity - 0-10 verbal numeric rating [Score] - Reported Systolic And Diastolic Provider Name and Address Organization Details Last Updated DateTime 3 160.02 cm 28.6 kg/m2 93767.4 2 g 96.6 [degF] 54 /min 16 /min 97 % 97 % 0 152/72 mm[Hg] Yael Zavaleta RN [place] [facility] [address] [facility] 3 08:19:17 Date Recorded Body mass index (BMI) Body height Oxygen saturation Oxygen saturation in Arterial blood by Pulse oximetry Heart rate Body temperature Body weight Systolic And Diastolic Provider Name and Address Organization Details Last Updated DateTime 2 29.2 kg/m2 160.02 cm 96 % 96 % 67 /min 97.3 [degF] 70821.7 4 g 136/80 mm[Hg] Not Available [facility] 3 02:42:36 Date Recorded Body height Provider Name an d Address Organization Details Last Updated DateTime 10/11/2021 160.02 cm Not Available [facility] 3 02:42:38 Social History Question Answer Notes LastModified by Organizat ion Details LastModified Time Tobacco Smoking Status Never Smoker Not Available [facility] 12/14/2022 02:34:58 Do You Have An Advance Directive? Yes MIGRATION.[id number] Information not available 12/14/2022 Do You Wear A Helmet When Biking? Yes MIGRATION.838149 5897 Information not available 12/14/2022 Are You Blind Or Do You Have Difficulty Seeing? No MIGRATION.189524 3406 Information not available 12/14/2022 Is Blood Transfusion Acceptable In An Emergency? Yes Information not available 02/28/2023 What Is Your Level Of Caffeine Consumption? Moderate MIGRATION.155221 3128 Information not available 12/14/2022 What Is Your Code Status? Full Code [id number] 5498 Information not available 12/14/2022 In The 14 Days Before Symptom Onset, Have You Had Close Contact With A Laboratory-confir med COVID-19 While That Case Was Ill? No MIGRATION.803050 2472 Information not available 12/14/2022 In The 14 Days Before Symptom Onset, Have You Had Close Contact With A Person Who Is Under Investigation For COVID-19 While That Person Was Ill? No MIGRATION.782047 7410 Information not available 12/14/2022 Are You Deaf Or Do You Have Serious Difficulty Hearing? No MIGRATION.056456 8689 Information not available 12/14/2022 What Type Of Diet Are You Following? REGULAR MIGRATION.491716 1610 Information not available 12/14/2022 What Is The Highest Grade Or Level Of School You Have Completed Or The Highest Degree You Have Received? [id number] MIGRATION.943430 3641 Information not available 12/14/2022 Have There Been Any Changes To Your Family Or Social Situation? No MIGRATION.481886 6076 Information not available 12/14/2022 What Is The Fluoride Status Of Your Home? Unknown MIGRATION.835108 0318 Information not available 12/14/2022 Are There Any Guns Present In Your Home? No MIGRATION.854495 0721 Information not available 12/14/2022 Do You Use Insect Repellent Routinely? Yes MIGRATION.820904 0400 Information not available 12/14/2022 [facility].269713 2296 Information not available 12/14/2022 Do You Have A Medical Power Of Power Reactor Operator? Yes MIGRATION.328703 8092 Information not available 12/14/2022 Do You Have Any Pets? No MIGRATION.789076 1583 Information not available 12/14/2022 What Is Your Relationship Status? MIGRATION.239784 4527 Information not available 12/14/2022 Do You Use Your Seat Belt Or Car Seat Routinely? Yes MIGRATION.177348 6859 Information not available 12/14/2022 Do You Have Smoke And Carbon Monoxide Detectors In Your Home? Yes MIGRATION.317872 7883 Information not available 12/14/2022 Are You Passively Exposed To Smoke? No MIGRATION.845431 5057 Information not available 12/14/2022 Are There Any Smokers In Your House? No MIGRATION.943560 7890 Information not available 12/14/2022 Do You Participate In Social [employer]? No MIGRATION.804288 1309 Information not available 12/14/2022 Do You Use Sunscreen Routinely? Yes MIGRATION.737377 1207 Information not available 12/14/2022 Has Tobacco Cessation Counseling Been Provided? No MIGRATION.541685 4324 Information not available 12/14/2022 Have You Recently Traveled Abroad? No MIGRATION.788341 4627 Information not available 12/14/2022 Do You Have Difficulty Walking Or Climbing Stairs? No MIGRATION.352338 7018 Information not available 12/14/2022 Are You Currently In School? No MIGRATION.453356 7524 Information not available 12/14/2022 Do You Have Any Dietary Restrictions? No MIGRATION.482468 3512 Information not available 12/14/2022 Sex: Unknown Functional Status Question Answer Note LastModified by Organizat ion Details LastModified Time Do you use any illicit or recreational drugs? No MIGRATION.5613565 026 Information not available 12/14/2022 Do you or have you ever used any other forms of tobacco or nicotine? No MIGRATION.4190608 026 Information not available 12/14/2022 What is your level of alcohol consumption? None MIGRATION.6272577 026 Information not available 12/14/2022 Are you currently employed? No Information not available 02/28/2023 Do you have transportation difficulties? No MIGRATION.9122282 026 Information not available 12/14/2022 Are you able to walk? YESWOREST MIGRATION.3498010 026 Information not available 12/14/2022 Do you have difficulty doing errands alone? No MIGRATION.4663458 026 Information not available 12/14/2022 Are you able to care for yourself independently? Yes MIGRATION.7240979 026 Information not available 12/14/2022 Do you have difficulty dressing, bathing, grooming, or toileting? No MIGRATION.7346533 026 Information not available 12/14/2022 What is your exercise level? None Information not available 02/28/2023 Mental Status Question Answer Note LastModified by Organizat ion Details LastModified Time Do you feel stressed (tense, restless, nervous, or anxious, or unable to sleep at night)? BC3349-1 MIGRATION.56522224 26 Information not available 12/14/2022 Do you have difficulty concentrating, remembering or making decisions? No MIGRATION.08150554 26 Information not available 12/14/2022 Family History Relationship Description Onset Age of this Age Resolved Age Notes LastModified by Organization Details LastModified Time Mother Family history of stroke Not available 2022 08:19:41 Father Malignant tumor of esophagus Not available 2022 08:20:04 Sister Malignant neoplasm of uterus Not available 2022 08:20:29 Medical History Condition Response HYPERTENSION Y BRONCHITIS Y ALLERGIES/HAYFEVER Y HIGH CHOLESTEROL / HYPERLIPIDEMIA Y OSTEOPOROSIS Y CANCER: SPECIFY Y Gynecological History Statement/Question Response If Post [...] trivalent, preservative 6 completed Not Available [facility] 12/14/2022 02:54:14 Influenza, split virus, quadrivalent, preservative 2 completed Not Available [facility] 12/14/2022 02:54:14 COVID-19, mRNA, LNP-S, PF, 100 mcg/0.5mL dose or 50 mcg/0.25mL dose 1 completed Not Available [facility] 12/14/2022 02:54:14 COVID-19, mRNA, LNP-S, PF, 100 mcg/0.5mL dose or 50 mcg/0.25mL dose 1 completed Not Available [facility] 12/14/2022 02:54:15 Influenza, split virus, quadrivalent, preservative 0 completed Not Available [facility] 12/14/2022 02:54:15 Influenza, split virus, quadrivalent, preservative 9 completed Not Available [facility] 12/14/2022 02:54:15 Influenza, split virus, quadrivalent, preservative 8 completed Not Available [facility] 12/14/2022 02:54:15 Influenza, split virus, quadrivalent, preservative 7 completed Not Available [facility] 12/14/2022 02:54:15 pneumococcal polysaccharide PPV23 5 completed Not Available [facility] 12/14/2022 02:54:15 Influenza, split virus, trivalent, preservative 4 completed Not Available [facility] 12/14/2022 02:54:16 DTaP 2 completed Not Available [facility] 12/14/2022 02:54:16 zoster live 2 completed Not Available [facility] 12/14/2022 02:54:16 Influenza, high-dose, quadrivalent, PF 1 completed Not Available [facility] 12/14/2022 02:54:16 MMR 9 completed Not Available [facility] 12/14/2022 02:54:16 pneumococcal polysaccharide PPV23 9 completed Not Available [facility] 12/14/2022 02:54:16 Pneumococcal conjugate PCV 13 7 completed Not Available [facility] 12/14/2022 02:54:17 Influenza, split virus, quadrivalent, preservative 5 completed Not Available [facility] 12/14/2022 02:54:17 Past Encounters Encounter ID Performer Location Encounter Start Date Encounter Closed Date Diagnosis/Indication Diagnosis SNOMED-CT Code Diagnosis ICD10 Code Diagnosis Note [id number] [facility] Irene Mcgill [address] [place] [address] 01/11/2021 00:00:00 01/12/2021 10:10:40 [id number] [facility] [place] [address] , [place] [address] 01/27/2021 00:00:00 01/27/2021 09:04:03 [id number] Peter Lopez MD [facility] [place] [address] , [place] [address] 02/03/2021 00:00:00 03/03/2021 16:39:32 [id number] Peter Lopez MD [facility] [place] [address] , [place] [address] 02/10/2021 00:00:00 02/10/2021 09:37:05 [id number] [facility] [place] [address] , [place] [address] 02/18/2021 00:00:00 02/18/2021 12:50:54 [id number] Peter Lopez MD [facility] [place] [address] , [place] [address] 03/24/2021 00:00:00 03/24/2021 09:33:12 [id number] Peter Lopez MD [facility] [place] [address] , [place] [address] 04/22/2021 00:00:00 04/22/2021 10:11:30 [id number] Peter Lopez MD [facility] [place] [address] , [place] [address] 04/26/2021 00:00:00 04/26/2021 16:23:23 [id number] Peter Lopez MD [facility] [place] [address] , [place] [address] 07/05/2021 00:00:00 07/05/2021 09:03:11 [id number] Peter Lopez MD [facility] [place] [address] [place] [address] y , [place] [address] 07/07/2021 00:00:00 07/08/2021 08:10:03 [id number] Peter Lopez MD [facility] [place] [facility] [address] , [place] [address] 08/16/2021 00:00:00 08/16/2021 09:51:06 [id number] Peter Lopez MD [facility] [place] [address] [place] [address] [place] [address] 09/13/2021 00:00:00 09/13/2021 11:08:58 [id number] Peter Lopez MD [facility] [place] [facility] [address] , [place] [address] 10/11/2021 00:00:00 10/11/2021 09:43:22 [id number] Peter Lopez MD [facility] [place] [address] [place] [address] y , [place] [address] 01/03/2022 00:00:00 01/03/2022 09:15:48 [id number] Peter Lopez MD [facility] [place] [address] [place] [address] y , [place] [address] 08/09/2022 00:00:00 08/09/2022 09:04:40 [id number] Yael Gillette NP [address] [address] 02/28/2023 08:02:02 02/28/2023 09:05:14 Allergic reaction to wasp sting 839148884 T63.461A EpiPen Vitamin B1 2 deficiency (non anemic) 69265288 E53.8 B12 1,000 mcg monthly. Hasn't had in a while. Essential hypertension 13192249 I10 ASA 81 mg po daily.Losa rtan 25 mg po daily.Meto prolol Tartrate 50 mg po bid. Gastroesop hageal reflux disease 877497944 K21.9 Nexium 40 mg po daily. Needs to have PA.Has tried other meds before, but was several many years ago. Hyperlipidemia 42850217 E78.5 Simvastati n 20 mg po nightly. Osteopenia 394764523 M85 .80 Dexa 2020. Ordered 02/28/23. Vitamin D deficiency 347 22232 E55.9 vit d po daily. Constipation 62856637 K5 9.00 Diet mods. Plantar fasciitis 309048 003 M72.2 Seeing Chiro. Herpes labialis 0462363 B00.1 valtrex 1 mg 2 tabs po bid for 1 day prn cold sore. Prediabetes 792428474 R7 3.03 Metformin ER 500 mg po daily. Seasonal a llergic rhinitis 574168263 J30.2 Montelukas t 10 mg po daily. Postmenopausal state 764 11955 Z78.0 Last in 2020. Screening for malignant neoplasm of colon 863091513 Z12.11 Unsure last time with Dr. Williamson. GI referral ordered. Health Concerns Section Related Observation LastModified by Organization Detai ls LastModified Time None Recorded Concern Status LastModified by Organization Details LastModified Time None Recorded Advance Directives Directive Y: Payers Insurance Date Sequence Insurance Name Policy Number Policy Joseph Covered Member ID Joseph Member ID Guarantor Name 03/01/2023 1 [place] Beatris Garcia [id number] Beatris Garcia 02/25/2023 2 [place] 111 Beatris Garcia [id number] Beatris Garcia Notes Date Note Type Note Provider Name and Address Organization Details Recorded Time 02/28/2023 text/html Here for new patient appt.Transfer from [facility]. Has been doing well and feeling well. Wants labs to see if b12 inj due.Lipid- working on it. Just trigs, but that is pasta and sweets.Prediabet es- low carb, low sugar diet.Osteopenia- Vit d daily and DEXA due.Mammogram scheduled for tomorrow. Yael Gillette NP [address] [facility], [facility] [address], [place], [address], [facility] 02/28/2023 09:02:32 OBGyn Episode No OBEpisode recorded.
== END 2025-05-09 07:36 | disposition home or self-care (01) ==
LOC: ANHIMG 07:36
PROVIDERS: PCP Nurse Practitioner Adult Health; Visit Provider Nurse Practitioner Adult Health
DX: Z12.31 Encounter for screening mammogram for malignant neoplasm of breast (principal)
CPT/HCPCS: 77063; 77067

== ENCOUNTER 2025-07-29 08:16 | Outpatient (CLI) | payer MEDICARE, BC, SELFPAY ==
--- OUTSIDE RECORDS SUMMARY | 2025-07-29 08:33 | XMS_ITS | Clinical Summary ---
Author Organization [facility] Address [address] [place] [address] Care Team Providers Care Janitor Caretaker Name Role Phone None, Physician Primary Care Provider Unavailabl e Source Comments [facility],non-owned Affiliates and Associated Physician Practices is amultiple site organization consisting of ambulatory clinics and hospital sitesin [place], [place], [place] and [place]. This disclosure is being madepursuant to the Care Everywhere program and may not contain all information available regarding this patient. 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
[2025-07-29 18:51] LABS: Hematocrit 31.3 % (37.0-47.0); Hemoglobin 10.2 g/dL (12.0-15.0); Immature Granulocyte Percent A 0.7 % (0-0.5); Lymphocytes Absolute Auto 1.48 K/mm3 (0.9-3.2); Mean Corpuscular HGB Conc 32.6 g/dl (32-36); Mean Corpuscular Hemoglobin 32.4 pg (26-34); Mean Corpuscular Volume 99.4 fl (80-100); Nucleated Red Blood Cells Absolute Auto 0.000 K/mm3 (0.0-0.012); Nucleated Red Blood Cells Perc 0.0 % (0.0-0.2); Platelet Count Result 302 k/mm3 (150-375); Red Blood Count 3.15 M/mm3 (4.2-5.4); White Blood Count 6.9 K/mm3 (4.5-10.0)
[2025-07-29 19:09] LABS: Alanine Aminotransferase 16 U/L (6-35); Albumin Level 4.4 g/dL (3.5-5.1); Alkaline Phosphatase 71 U/L (38-126); Anion Gap 7 mmol/L (4-12); Aspartate Amino Transferase 84 U/L (14-36); Bilirubin,Total 0.5 mg/dL (0.2-1.3); Blood Urea Nitrogen 17 mg/dL (7-17); Calcium 9.7 mg/dL (8.4-10.2); Carbon Dioxide 27 mmol/L (22-30); Chloride 102 mmol/L (98-107); Cholesterol 167 mg/dL (0-200); Estimated Glomerular Filt Rate > 60; Glucose 113 mg/dL (65-110); HDL Direct 50 mg/dL; Potassium 5.3 mmol/L (3.4-5.0); Sodium 136 mmol/L (137-145); Total Protein 7.0 g/dL (6.3-8.2); Triglycerides 110 mg/dL (<150)
[2025-07-29 19:12] LABS: Hemoglobin A1C 5.6 % (<5.7)
[2025-07-29 20:04] LABS: Vitamin B12 351.0 pg/mL (239-931)
== END 2025-07-29 08:17 | disposition home or self-care (01) ==
PROVIDERS: PCP Nurse Practitioner Adult Health; Visit Provider Nurse Practitioner Adult Health
DX: I10 Essential (primary) hypertension (principal); R73.9 Hyperglycemia, unspecified; Z51.81 Encounter for therapeutic drug level monitoring
CPT/HCPCS: 36415; 80053; 80061; 82607; 83036; 85025